=== PATIENT | female | born 1950 | race Hispanic/Latino ===

== ENCOUNTER 2018-06-05 12:24 | Inpatient (IN) | payer BC, MEDICARE ==
[~2018-06-05] VITALS: Ht 157.5 cm; Wt 66.7 kg
[2018-06-05] MEDS ORDERED: SODIUM CHLORIDE 0.9% 1000ML 1,000 ML IV STA (12:51)
[2018-06-05] MEDS ORDERED: MORPHINE SULFATE 2 MG/ML SYR 1ML IV STA (12:51)
[2018-06-05] MEDS ORDERED: ONDANSETRON HCL INJ 2MG/ML 2ML 2 MG/ML VIAL IV STA (12:51)
[2018-06-05] MEDS ORDERED: MORPHINE SULFATE INJ 4 MG/ML INJ 1ML IV ONE (13:00)
[2018-06-05 13:22] LABS: BASOPHILS # (AUTO) 0.1 (0.0-0.1); BASOPHILS % 0.5 % (0.0-1.0); EOSINOPHILS # (AUTO) 0.1 (0.0-0.4); EOSINOPHILS % 0.9 % (0.0-6.0); HEMATOCRIT 35.6 % (34.2-44.1); HEMOGLOBIN 11.8 g/dL (12.0-16.0); LYMPHOCYTES # (AUTO) 0.6 (1.0-3.2); LYMPHOCYTES % 6.1 % (18.0-39.1); MEAN CORPUSCULAR HEMOGLOBIN 29.6 pg (28-32); MEAN CORPUSCULAR HGB CONC 33.1 g/dL (31-35); MEAN CORPUSCULAR VOLUME 89.4 fL (81-99); MONOCYTES # (AUTO) 0.8 (0.2-0.8); MONOCYTES % 8.2 % (4.4-11.3); NEUTROPHILS % 81.2 % (38.7-80.0); PLATELET COUNT 146 x10e3/uL (140-360); RED BLOOD COUNT 3.98 x10e6/uL (3.6-5.1); RED CELL DISTRIBUTION WIDTH 14.2 % (11.7-14.4)
[2018-06-05 13:39] LABS: INR 0.99; PARTIAL THROMBOPLASTIN TIME 26.2 seconds (23.8-35.5); PROTHROMBIN TIME 13.6 seconds (11.9-14.5)
[2018-06-05 13:45] LABS: COLOR,URINE YELLOW (YELLOW)
[2018-06-05 13:46] LABS: CLARITY,URINE HAZY (CLEAR); KETONES,URINE NEGATIVE (NEGATIVE); LEUKOCYTE ESTERASE ,URINE TRACE (NEGATIVE); NITRITE,URINE NEGATIVE (NEGATIVE); PROTEIN,URINE DIPSTICK TRACE (NEGATIVE)
[2018-06-05 13:47] LABS: BILIRUBIN,URINE NEGATIVE (NEGATIVE); URINE UROBILINOGEN 0.2 mg/dL (0.2 - 1)
[2018-06-05 13:48] LABS: BACTERIA,URINE MANY /HPF; RBC,URINE 21-50 /HPF (0-5); WBC,URINE (MAN) >50 /HPF (0-5)
[2018-06-05 13:49] LABS: EPITHELIAL CELLS,URINE MODERATE /LPF
[2018-06-05 13:50] LABS: ALBUMIN 2.3 g/dL (3.5-5.0); ALBUMIN/GLOBULIN RATIO 0.4 (0.8-2.0); ANION GAP 16.3 mmol/L (8-16); CALCIUM 9.4 mg/dL (8.4-10.2); CREATININE, SERUM 2.53 mg/dL (0.57-1.11); POTASSIUM 4.3 mmol/L (3.5-5.1)
[2018-06-05] MEDS ORDERED: SODIUM CHLORIDE 0.9% 1000ML 1,000 ML IV SCH (14:00)
[2018-06-05] MEDS ORDERED: INSULIN REGULAR, HUMAN 100 UNIT/1 ML 3ML VIAL SQ ONE (14:00)
[2018-06-05] MEDS ORDERED: CEFTRIAXONE SOD 1 GM/NS 50 ML 50 ML IV ONE (14:15)
--- NOTE | 2018-06-05 14:18 | Diagnostic Imaging Report ---
EXAM: CT Abdomen and Pelvis WITHOUT contrast INDICATION: Abdominal pain COMPARISON: None. TECHNIQUE: Abdomen and pelvis were scanned utilizing a multidetector helical scanner from the lung base to the pubic symphysis without administration of IV contrast. Absence of intravenous contrast decreases sensitivity for detection of focal lesions and vascular pathology. Coronal and sagittal reformations were obtained. Renal stone protocol was performed. Dose modulation, iterative reconstruction, and/or weight based adjustment of the mA/kV was utilized to reduce the radiation dose to as low as reasonably achievable. IV CONTRAST: None. ORAL CONTRAST: None RADIATION DOSE: Total DLP: 435.11 mGy*cm Estimated effective dose: (DLP x 0.015 x size factor) mSv COMPLICATIONS: None FINDINGS: LINES and TUBES: None. LOWER THORAX: Lung bases clear. Heart size normal. HEPATOBILIARY: No focal hepatic lesions. No biliary ductal dilation. GALLBLADDER: No radio-opaque stones or sludge. No wall thickening. SPLEEN: No splenomegaly. PANCREAS: No focal masses or ductal dilatation. ADRENALS: No adrenal nodules KIDNEYS/URETERS: No hydronephrosis. The upper pole of the left kidney has a bulbous configuration which may obscure a mass on this noncontrast examination. An exophytic 9 mm mass projects from the lateral lower pole of left kidney with density suggesting cyst. No stones. GI TRACT: No abnormal distention, wall thickening, or evidence of bowel obstruction. Radiopaque material is seen in the stomach. Appendix is normal. PELVIC ORGANS/BLADDER: There is a mildly thickened wall of the urinary bladder. No discrete abnormal mass or fluid collection in the pelvis. The uterus is anteverted. A left adnexal calcification is noted. LYMPH NODES: No dominant lymph node mass is seen in the abdomen, retroperitoneum or pelvis. VESSELS: Abdominal aorta is atherosclerotic with no aneurysm. Unenhanced IVC unremarkable. PERITONEUM / RETROPERITONEUM: No pneumoperitoneum or ascites. BONES: No acute or suspicious bony lesions. SOFT TISSUES: Superficial surrounding soft tissue unremarkable. IMPRESSION: 1. No urinary tract calcification or hydronephrosis. Mild nonspecific perinephric stranding bilaterally. 2. Asymmetric enlargement of the upper pole of the left kidney. Full characterization is suboptimal due to lack of contrast. Underlying left renal mass is a concern. Recommend further evaluation with renal mass protocol CT. 3. Mild thickening of the wall of the urinary bladder which may be accentuated by lack of distention or may be related to cystitis. Staff: Joon Signed by: Dr. Quincy Dupree M.D. on 06/05/2018 2:15 PM
[2018-06-05 14:35] LABS: BLAST CELLS % MANUAL 1; EOSINOPHILS % (MANUAL) 1 % (0-7); LYMPHOCYTES % (MANUAL) 4 % (19-48); MONOCYTES % (MANUAL) 5 % (3.4-9.0); NEUTROPHILS % (MANUAL) 85 % (40-74)
[2018-06-05] MEDS ORDERED: DEXTROSE 50% SYRINGE 50 ML IV PRN (14:45)
[2018-06-05] MEDS: CEFTRIAXONE SOD 1 GM VIAL IV SCH (14:55)
--- OUTSIDE RECORDS SUMMARY | 2018-06-05 14:59 | XMS REPORT ---
[facility] Address Unknown Phone Unavailable Care Team Providers Care Last Chalker Name Role Phone Juani AVILA Unavailable Unavailable Problems This patient has no known problems. Allergies, Adverse Reactions, Alerts This patient has no known allergies or adverse reactions. Medications This patient has no known medications. Results Test Description Test Time Test Comments Text Results Atomic Results Result Comments CT ABDOMEN/PELVIS WO 2018-06-05 14:01:00 [place] [address] Patient Name: YAEL BRITO MR #: [id number] : 1950 Age/Sex: 68/F Req #: [id number] Adm Physician: Ordered by: JANE GRAY MANAGER FRONT OFFICE Report #: [id number] Location: ER Room/Bed: Procedure: [id number] CT/CT ABDOMEN/PELVIS WO Exam Date: 06/05/18 Exam Time: 1255 REPORT STATUS: Signed EXAM: CT Abdomen and Pelvis WITHOUT contrast INDIC ATION: Abdominal pain COMPARISON: None. TECHNIQUE: Abdomen and pelvis were scanned utilizing a multidetector helical scanner from the lung base to the pubic symphysis without administration of IV contrast. Absence of intravenous contrast decreases sensitivity for detection of focal lesions and vascular pathology. Coronal and sagittal reformations were obtained. Renal stone protocol was performed. Dose modulation, iterative reconstruction, and/or weight based adjustment of the mA/kV was utilized to reduce the radiation dose to as low as reasonably achievable. IV CONTRAST: None. ORAL CONTRAST: None RADIATION DOSE: Total DLP: 435.11 mGy*cm Estimated effective dose: (DLP x 0.015 x size factor) mSv COMPLICATIONS: None FINDINGS: LINES and TUBES: None. LOWER THORAX: Lung bases clear. Heart size normal. HEPATOBILIARY: No focal hepatic lesions. No biliary ductal dilation. GALLBLADDER: No radio- opaque stones or sludge. No wall thickening. SPLEEN: No splenomegaly. PANCREAS: No focal masses or ductal dilatation. ADRENALS: No adrenal nodules KIDNEYS/URETERS: No hydronephrosis. The upper pole of the left kidney has a bulbous configuration which may obscure a mass on this noncontrast examination. An exophytic 9 mm mass projects from the lateral low er pole of left kidney with density suggesting cyst. No stones. GI TRACT: No abnormal distention, wall thickening, or evidence of bowel obstruction. Radiopaque material is seen in the stomach. Appendix is normal. PELVIC ORGANS/BLADDER: There is a mildly thickened wall of the urinary bladder. No discrete abnormal mass or fluid collection in the pelvis. The uterus is anteverted. A left adnexal calcification is noted. LYMPH NODES: No dominant lymph node mass is seen in the abdomen, retroperitoneum or pelvis. VESSELS: Abdominal aorta is atherosclerotic with no aneurysm. Unenhanced IVC unremarkable. PERITONEUM / RETROPERITONEUM: No pneumoperitoneum or ascites. BONES: No acute or suspicious bony lesions. SOFT TISSUES: Superficial surrounding soft tissue unremarkable. IMPRESSION: 1. No urinary tract calcification or hydronephrosis. Mild nonspecific perinephric stranding bilaterally. 2. Asymmetric enlargement of the upper pole of the left kidney. Full characterization is suboptimal due to lack of contrast. Underlying left renal mass is a concern. Recommend further evaluation with renal mass protocol CT. 3. Mild thickening of the wall of the urinary bladder which may be accentuated by lack of distention or may be related to cystitis. Staff: Joon Signed by: Dr. Von Burroughs M.D. on 06/05/2018 2:15 PM Dictated By: VON BURROUGHS MD [id number] Transcribed By: HUMBERTO on 06/05/18 1414 COPY TO: JANE GRAY NP
[2018-06-05] MEDS ORDERED: INSULIN REGULAR, HUMAN 100 UNIT/1 ML 3ML VIAL IV NR (15:00)
[2018-06-05] MEDS: SODIUM CHLORIDE 0.9% 1000ML 1,000 ML IV SCH (17:00)
[2018-06-05] MEDS: INSULIN REGULAR, HUMAN 100 UNIT/1 ML 3ML VIAL SQ SCH ×2 (17:00→21:10)
[2018-06-05] MEDS: MORPHINE SULFATE INJ 4 MG/ML INJ 1ML IV PRN (19:24)
[2018-06-05] MEDS: ONDANSETRON HCL INJ 2MG/ML 2ML 2 MG/ML VIAL IV PRN (19:24)
--- NOTE | 2018-06-05 23:35 | NUR ---
DR. MONTERO AT BEDSIDE FOR PT EVAL AT THIS TIME
--- NOTE | 2018-06-05 23:50 | NUR ---
REPORT GIVEN TO DENY BRITO AND DENY CLARK. PT RESTING IN BED, NAD NOTED.
--- NOTE | 2018-06-06 02:49 | Diagnostic Imaging Report ---
EXAMINATION: CHEST SINGLE (PORTABLE) INDICATION: ^screening COMPARISON: None FINDINGS: AP view TUBES and LINES: None. LUNGS: Lungs are well inflated. Elevated right hemidiaphragm. Lungs are clear. There is no evidence of pneumonia or pulmonary edema. PLEURA: No pleural effusion or pneumothorax. HEART AND MEDIASTINUM: The cardiomediastinal silhouette is unremarkable. BONES AND SOFT TISSUES: No acute osseous lesion. Soft tissues are unremarkable. UPPER ABDOMEN: No free air under the diaphragm. IMPRESSION: No acute thoracic abnormality. Signed by: Dr. Marco Madrid M.D. on 06/06/2018 2:46 AM
[2018-06-06] MEDS: SODIUM CHLORIDE 0.9% 1000ML 1,000 ML IV SCH ×3 (04:27→17:05)
--- NOTE | 2018-06-06 05:47 | History and Physical ---
PRIMARY CARE DOCTOR: Sanya Rivera MD CHIEF COMPLAINT: Pain. HISTORY OF PRESENT ILLNESS: Ms. Hwang is a pleasant 68-year-old female with pain. The patient is having pain to her left side of the abdomen and slightly to her left flank. Onset 3-4 days. She was having some anorexia over the weekend. There are even reports of some hematuria. She was seen at primary care doctor's office today and then sent to the emergency room for rapid evaluation. In the emergency room, sodium found at 124, 2.5 creatinine, 31 bicarbonate, 490 platelets, 9.8 white count. Other labs otherwise were unremarkable. Urinalysis with greater than 50 white cells, moderate epithelial cells. Rbc's 21-50. Many bacteria. Abdominal CT done emergently with no urinary tract calcification. Nonspecific perinephric stranding bilaterally and could not rule out left renal mass. Hydronephrosis is noted on initial evaluation, but no hydronephrosis, was really congested. PAST MEDICAL HISTORY: Hypertension, diabetes, GERD, hyperlipidemia and vitamin D deficiency. MEDICATIONS: Medication list reviewed per the chart record. ALLERGIES: NO KNOWN DRUG ALLERGIES. SOCIAL HISTORY: No smoking. No drinking. No drugs. She is mainly homemaker. She is from [facility]. FAMILY HISTORY: Noncontributory to this. REVIEW OF SYSTEMS: GENERAL: No weight loss. HEENT: No mouth ulcers. OPHTHALMOLOGIC: No double vision. ENDOCRINE: No known thyroid dyscontrol/dystonia. DERMATOLOGIC: No known connective tissue disease. No rash. PULMONARY: No asthma. CARDIAC: No heart attacks. GI: No GI bleed. : No kidney stones known. NEUROLOGIC: No seizures. PSYCHIATRIC: No depression. PHYSICAL EXAMINATION: VITAL SIGNS: Currently afebrile, vital signs noted, reviewed per chart record. GENERAL: In no acute distress, alert, calm. HEENT: Normocephalic, atraumatic. NECK: Supple. Throat midline. LUNGS: Bilateral air entry, clear. CARDIOVASCULAR: S1 and S2. No murmurs, rubs, or gallops. ABDOMEN: Soft, obese, nontender. EXTREMITIES: No clubbing, no cyanosis, there is a 2+ edema. INTEGUMENT: No rash. No purpura. LABORATORY DATA: A 4.8 potassium, 124 sodium, 76 BUN, 2.5 creatinine. A 9.8 white count, 36 hematocrit, 146 platelets. INR 0.99. AST 114, alkaline phosphatase 190 and ALT 94. IMPRESSION AND PLAN: 1. Acute pyelonephritis. 2. Renal mass, likely baseline is 9 mm size. 3. Hematuria. 4. Anorexia. 5. Hypoglycemia. 6. Acute kidney failure. 7. Hyperglycemia. 8. Elevated LFTs. 9. History of hypertension. 10. Diabetes. 11. Gastroesophageal reflux disease. 12. Hyperlipidemia. Get ultrasound renal system . Endocrinology consult. Aggressive antibiotics. Await cultures. Give some IV fluid preload. The patient reported bouts of abdominal fullness and will check complement levels. Repeat LFTs in the morning. Thank you very much, Dr. Rivera for allowing me a chance to participate in care of Ms. Hwang. Do not hesitate to contact me if I could help you in any way. MD RITO Ortega/MARLON /[id number]
--- NOTE | 2018-06-06 07:10 | NUR ---
Walking rounds completed with Sohan SARGENT RN. Pt is in no acute distress at this time.
--- NOTE | 2018-06-06 07:11 | NUR ---
report given in full to mic rosas
--- NOTE | 2018-06-06 07:17 | NUR ---
consult called to dr messer
[2018-06-06 08:38] LABS: BASOPHILS # (AUTO) 0.1 (0.0-0.1); BASOPHILS % 0.4 % (0.0-1.0); EOSINOPHILS # (AUTO) 0.1 (0.0-0.4); EOSINOPHILS % 0.8 % (0.0-6.0); HEMATOCRIT 34.7 % (34.2-44.1); HEMOGLOBIN 11.4 g/dL (12.0-16.0); LYMPHOCYTES # (AUTO) 0.6 (1.0-3.2); LYMPHOCYTES % 4.7 % (18.0-39.1); MEAN CORPUSCULAR HEMOGLOBIN 29.8 pg (28-32); MEAN CORPUSCULAR HGB CONC 32.9 g/dL (31-35); MEAN CORPUSCULAR VOLUME 90.8 fL (81-99); MONOCYTES # (AUTO) 0.9 (0.2-0.8); MONOCYTES % 6.7 % (4.4-11.3); NEUTROPHILS # (AUTO) 11.4 (2.1-6.9); NEUTROPHILS % 85.1 % (38.7-80.0); PLATELET COUNT 163 x10e3/uL (140-360); RED BLOOD COUNT 3.82 x10e6/uL (3.6-5.1); RED CELL DISTRIBUTION WIDTH 14.6 % (11.7-14.4)
[2018-06-06 08:57] LABS: ALBUMIN 2.2 g/dL (3.5-5.0); ALBUMIN/GLOBULIN RATIO 0.4 (0.8-2.0); ANION GAP 14.5 mmol/L (8-16); CALCIUM 9.2 mg/dL (8.4-10.2); CREATININE, SERUM 1.79 mg/dL (0.57-1.11); POTASSIUM 4.5 mmol/L (3.5-5.1)
[2018-06-06 09:21] LABS: MAGNESIUM 2.1 MG/DL (1.3-2.1); PHOSPHORUS 2.7 MG/DL (2.3-4.7)
--- NOTE | 2018-06-06 09:59 | Diagnostic Imaging Report ---
EXAM: US ABDOMEN COMPLETE DATE: 06/06/2018 8:00 AM INDICATION: Acute renal/liver failure, renal mass COMPARISON: CT abdomen/pelvis, 06/05/2018 FINDINGS: Grayscale and color flow Doppler ultrasound of the abdomen was performed. Liver: 12.6 cm span. Mildly hyperechoic parenchyma. No intrahepatic mass or bile duct dilatation. Main portal vein 0.7 cm, nondilated, normal hepatopetal flow. Spleen: 9.2 cm span, no splenomegaly. Biliary: No cholelithiasis. Sludge is seen within the gallbladder lumen. There is no gallbladder wall thickening. Sonographic Downey sign negative. Common bile duct 0.5 cm, normal. Pancreas: Visualized portions the pancreas show no discrete mass or duct dilatation. Right kidney: 11.6 x 4.5 x 4.6 cm. Normal cortical echogenicity. No hydronephrosis or contour deforming mass. Left kidney: 10.9 x 5.8 x 5.4 cm. Normal cortical echogenicity. The upper pole appears slightly more prominent than the lower pole, as on the previous CT. An indeterminate localized hyperechoic area is seen in the posterior cortex of the upper pole, measuring 1.9 x 1.8 cm. No other discrete renal mass identified. There is a lower pole left renal cyst measuring 1.5 x 1.3 x 1.1 cm. Vessels: Aorta and IVC are largely obscured by overlying bowel. Ascites: None IMPRESSION: 1. The upper pole of left kidney appears wider than the lower pole, although a discrete contour deforming mass is not identified. This may be due to splenic impression rather than mass. A nonspecific hyperechoic area is seen in the cortex of the upper pole. If the patient is unable to tolerate IV contrast for renal mass CT, a noncontrast renal MRI may provide additional characterization. 2. No cholelithiasis, evidence for cholecystitis, or bile duct dilatation. 3. Hepatic steatosis. Signed by: Dr. Quincy Dupree M.D. on 06/06/2018 9:56 AM
[2018-06-06] MEDS: INSULIN REGULAR, HUMAN 100 UNIT/1 ML 3ML VIAL SQ SCH ×4 (10:45→21:00)
[2018-06-06] MEDS: ONDANSETRON HCL INJ 2MG/ML 2ML 2 MG/ML VIAL IV PRN (11:18)
[2018-06-06] MEDS: MORPHINE SULFATE INJ 4 MG/ML INJ 1ML IV PRN (11:20)
[2018-06-06] MEDS ORDERED: ACETAMINOPHEN 325 MG TAB PO ONE (13:00)
--- NOTE | 2018-06-06 14:55 | Progress Note ---
DATE: 06/06/2018 Internal Medicine Progress Note SUBJECTIVE: Ms. Hwang was seen and examined at bedside. She continues to have slow progress. She has a lot of abdominal pain and left flank pain. The patient ate very minimal amount today. The patient's hemodynamics are more stable except for heart rates being in the 110s. The patient with creatinine that is already improving. The patient is awake, is spontaneously breathing. REVIEW OF SYSTEMS: No bleeding, no chest pain. OBJECTIVE: VITAL SIGNS: Currently afebrile. Vital signs noted and reviewed per the chart record. GENERAL: In bed, slightly feeling weak, but talking. HEENT: Normocephalic, atraumatic. NECK: Supple. Throat midline. LUNGS: Bilateral air entry, limited, but clear. CARDIOVASCULAR: S1, S2. No murmurs, rubs, or gallops. ABDOMEN: Soft, nontender. EXTREMITIES: No clubbing, no cyanosis. There is no edema. INTEGUMENT: No rash. No purpura. LABS: 4.5 potassium, 16 BUN, 1.8 creatinine. IMPRESSION AND PLAN: 1. Pyelonephritis. 2. Abdominal/flank pain, left side. 3. Left renal abnormality on imaging, nonspecific. 4. Weakness and anorexia. 5. Uncontrolled diabetes. 6. Acute liver failure, mild; transaminitis, hopefully better. At this time, continue current therapy. The patient to continue antibiotics. We will follow up the ultrasound results and focus on kidneys if it is acute or chronic as well as look in liver for any mass lesions. We will look at the left kidney if there is any mass lesion noted. Continue supportive IV fluid and repeat blood work tomorrow. We will follow along closely. MD RITO Ortega/MARLON /[id number]
[2018-06-06] MEDS: CEFTRIAXONE SOD 1 GM VIAL IV SCH (16:58)
[2018-06-06] MEDS: HEPARIN SOD (PORCINE) 5,000 UNIT/ML VIAL SC SCH ×2 (17:00→21:00)
--- NOTE | 2018-06-06 17:41 | NUR ---
report received from Bina, patient to arrive Alert and oriented via stretcher.
--- NOTE | 2018-06-06 18:00 | NUR ---
patient arrived via stretched alert and oriented and in no distress. call harris within reach, bed in lowest position and daughter at bedside.
[2018-06-06 18:19] VITALS: BP 120/57
--- NOTE | 2018-06-06 18:40 | NUR ---
handoff report given to night nurse nurse, patient aware of change. call hraris within reach, bed in lowest position and daughter remains at bedside.
[2018-06-06 19:15] VITALS: BP 120/57
--- NOTE | 2018-06-06 19:15 | NUR ---
patient received awake, alert, lying quietly in bed. no c/o pain noted at this time. ivf continue to infuse without difficulty. admit assessment/history complete. family noted at the bedside. patient/family instructed to call for assistance when needed.
[2018-06-06 19:30] VITALS: BP 127/62
--- NOTE | 2018-06-06 19:30 | NUR ---
Blood pressure 181/88 hr 62. patient medicated with clonidine 0.1 mg po at 1848 for elevated bp. will continue to monitor. Addendum: 06/06/18 at 2224 by Adeola Gomez RN error--wrong patient.
[2018-06-06 20:00] VITALS: BP 127/62
[2018-06-06] MEDS ORDERED: CELEBREX200 MG PO (21:52)
[2018-06-06] MEDS ORDERED: PANTOPRAZOLE SO40 MG PO (21:53)
[2018-06-06] MEDS ORDERED: synjardy PO (21:57)
[2018-06-06] MEDS ORDERED: MAGNESIUM OXID400 MG PO (22:06)
[2018-06-06] MEDS ORDERED: VITAMIN D400 UNIT PO (22:06)
[2018-06-06] MEDS ORDERED: CRESTOR10 MG PO (22:06)
[2018-06-06] MEDS ORDERED: ACTOS30 MG PO (22:06)
[2018-06-06] MEDS ORDERED: GABAPENTIN300 MG PO (22:06)
[2018-06-06] MEDS ORDERED: ALENDRONATE SOD70 MG PO (22:09)
[2018-06-06] MEDS ORDERED: BENICAR20 MG PO (22:09)
[2018-06-07] VITALS: BP 132/80
[2018-06-07] MEDS: ONDANSETRON HCL INJ 2MG/ML 2ML 2 MG/ML VIAL IV PRN ×2 (00:45→13:16)
[2018-06-07] MEDS: MORPHINE SULFATE INJ 4 MG/ML INJ 1ML IV PRN ×2 (00:45→13:16)
--- NOTE | 2018-06-07 00:45 | NUR ---
patient medicated with morphine 4 mg and zofran 4 mg ivp for c/o left lower abd/lower back pain 09/05 at this time. bed alarm remains on and call harris within reach. patient instructed to call for assistance when needed.
--- NOTE | 2018-06-07 03:38 | Consultation ---
DATE OF CONSULTATION: 06/06/2018 Nephrology Consult Note REASON FOR CONSULTATION: Hyponatremia and left renal mass seen on imaging. HISTORY OF PRESENT ILLNESS: This is a 68-year-old female with past medical history of hypertension, diabetes, GERD, hyperlipidemia, and vitamin D deficiency, who came into the ED with complaints of left-sided abdominal flank pain ongoing for the last 3 to 4 days. The patient has also been having some decreased oral intake over the weekend. She was seen by her PCP and was told to come to the ER for the evaluation. The patient reports having some hematuria as well. On arrival here, the patient was found to have a sodium level of 124, creatinine is 2.5. The patient denies any diuretic using at home. Denies any renal stones in the past. Has had urinary tract infections before. Denies any family history of renal disease or failure. Denies any NSAID uses or any [id number] medications. CTA imaging was performed shows evidence of a renal mass in the left renal lower pole of the kidney. We will likely need further evaluation. REVIEW OF SYSTEMS: 1. Pertinent positives: Hematuria, flank pain. Decreased oral intake. 2. Pertinent negative: Denies any chest pain, palpitation, nausea, vomiting, diarrhea, dysuria, hematuria, frequency, urgency, lightheadedness, dizziness, abdominal pain, headaches, shortness of breath, cough, congestion, fever, or any other complaints. The rest of the 14-point review of systems are reviewed with the patient and are negative. ALLERGIES: NO KNOWN DRUG ALLERGIES. HOME MEDICATIONS: Currently, not available. Please see med reconciliation form once available in the chart. PAST MEDICAL HISTORY: Hypertension, diabetes, GERD, hyperlipidemia, and vitamin D deficiency. FAMILY HISTORY: Hypertension, diabetes. PAST SURGICAL HISTORY: Reports none. SOCIAL HISTORY: No smoking. No drugs. No alcohol. She is . PHYSICAL EXAMINATION: VITAL SIGNS: Temperature 96.6, pulse 87, respiratory rate is 20, blood pressure is 127/62, pulse ox 97% on room air. GENERAL: Not in acute distress. Alert and oriented x3. Cooperative on examination HEENT: Head is normocephalic, atraumatic. Eyes, Pupils are equal, round, and reactive to light bilaterally. Extraocular movements are intact bilaterally. NECK: Supple with good range of motion. Throat, no evidence of erythema or exudates in the posterior pharynx. Has poor dentition. PULMONARY: Clear to auscultation bilaterally. No wheezing, no rales, or rhonchi. No crackles appreciated. CARDIOVASCULAR: Positive S1, S2. No murmurs, rubs, or gallops appreciated. ABDOMEN: Soft, nondistended, and nontender to palpation. Bowel sounds present. MUSCULOSKELETAL: Strength is 5/5 throughout. No evidence of any muscle deficits on examination. No weakness appreciated. NEUROLOGICAL: Cranial nerves II through XII grossly intact. No evidence of any neurological deficit on exam. SKIN: Intact. Warm to touch. Good cap refill. PSYCHIATRIC: Normal affect and mood. EXTREMITIES: No edema. Good range of motion throughout. LAB FINDINGS: Show white count 13.3, hemoglobin 9.1, hematocrit 34.7, and platelets of 163. Chemistry: Sodium is 132, on admission 124; potassium is 4.5; chloride is 101; bicarbonate is 21; anion gap of 14; BUN is 16; creatinine is 1.79; glucose 174; calcium is 9.2; phosphorus is 2.7; magnesium is 2.1. LFTs were normal. Albumin was 2.2. Urinalysis concerning for UTI. C3, C4, and complement CH50 has been ordered. MICROBIOLOGY: Urine culture positive for gram-negative rods. IMAGING STUDIES: CT of abdomen and pelvis shows no urinary tract calculi or hydronephrosis. Mild nonspecific perinephric stranding bilaterally. There is also concern for a left renal mass, will need renal mass protocol CT to further evaluate. There is also mild thickening of the gallbladder, concerning for underlying cystitis. Chest x-ray, negative. Abdominal ultrasound shows an upper pole does not appear to be wide than the lower pole, although discrete contour, deformity, or mass is not identified. This may be due to splenic compression rather than a mass. The patient is unable to tolerate IV contrast for renal mass CT and noncontrast renal MRI may provide additional characterization. IMPRESSION: 1. Acute kidney injury secondary to prerenal azotemia and dehydration. 2. Hematuria. 3. Concerns for left renal mass. 4. Hyponatremia. 5. Pyelonephritis, urinary tract infection. PLAN: At this time, her renal function actually improved with IV fluid hydration. We will continue with IV fluids for now. We are going to monitor sodium level, which increased appropriately to 132 as of this morning. We are going to order stat sodium level now to evaluate further. We will get a CT of renal mass protocol tomorrow with IV contrast if the renal function has improved, which I suspected well. I will continue with IV antibiotics as per primary team. The urine culture showed gram-negative rods. I will go ahead and get a urine protein to creatinine ratio, urine sodium, urine chloride, microalbumin to creatinine as well. In relation to her hematuria, we will need to evaluate this further with a CT scan and also Urology has been consulted for further management care. C3, C4, CH50 has been ordered, which is appropriate. We will continue to monitor. We will also get a repeat UA with microscopy in the event if she has changed. This could also be secondary to underlying pyelonephritis leading to the hematuria. MD ANNE Cadet/MARLON /[id number]
[2018-06-07 04:00] VITALS: BP 130/62
[2018-06-07] MEDS: SODIUM CHLORIDE 0.9% 1000ML 1,000 ML IV SCH ×3 (04:30→15:20)
--- NOTE | 2018-06-07 04:40 | NUR ---
urine collected per orders and sent to lab.
[2018-06-07 05:31] LABS: BILIRUBIN,URINE NEGATIVE (NEGATIVE); CLARITY,URINE CLOUDY (CLEAR); COLOR,URINE YELLOW (YELLOW); KETONES,URINE NEGATIVE (NEGATIVE); LEUKOCYTE ESTERASE ,URINE 1+ (NEGATIVE); NITRITE,URINE NEGATIVE (NEGATIVE); PROTEIN,URINE DIPSTICK 1+ (NEGATIVE); URINE UROBILINOGEN 0.2 mg/dL (0.2 - 1)
[2018-06-07 06:08] LABS: BASOPHILS % 0.2 % (0.0-1.0); EOSINOPHILS # (AUTO) 0.3 (0.0-0.4); EOSINOPHILS % 1.9 % (0.0-6.0); HEMATOCRIT 30.5 % (34.2-44.1); HEMOGLOBIN 9.8 g/dL (12.0-16.0); LYMPHOCYTES # (AUTO) 0.9 (1.0-3.2); LYMPHOCYTES % 5.4 % (18.0-39.1); MEAN CORPUSCULAR HEMOGLOBIN 29.2 pg (28-32); MEAN CORPUSCULAR HGB CONC 32.1 g/dL (31-35); MEAN CORPUSCULAR VOLUME 90.8 fL (81-99); MONOCYTES # (AUTO) 0.9 (0.2-0.8); MONOCYTES % 5.2 % (4.4-11.3); NEUTROPHILS # (AUTO) 13.8 (2.1-6.9); NEUTROPHILS % 85.3 % (38.7-80.0); PLATELET COUNT 142 x10e3/uL (140-360); RED BLOOD COUNT 3.36 x10e6/uL (3.6-5.1); RED CELL DISTRIBUTION WIDTH 15.3 % (11.7-14.4)
[2018-06-07 06:29] LABS: BACTERIA,URINE RARE /HPF; EPITHELIAL CELLS,URINE FEW /LPF
[2018-06-07 06:30] LABS: RENAL EPITHELIAL CELLS,URINE RARE; TRANSITIONAL EPI CELLS,URINE FEW
[2018-06-07 06:38] LABS: ALBUMIN 1.7 g/dL (3.5-5.0); ALBUMIN/GLOBULIN RATIO 0.4 (0.8-2.0); ANION GAP 11.1 mmol/L (8-16); CALCIUM 8.5 mg/dL (8.4-10.2); CREATININE, SERUM 1.6 mg/dL (0.57-1.11); POTASSIUM 5.1 mmol/L (3.5-5.1)
[2018-06-07] MEDS: INSULIN REGULAR, HUMAN 100 UNIT/1 ML 3ML VIAL SQ SCH ×4 (07:30→21:00)
[2018-06-07 07:38] VITALS: BP 114/53
[2018-06-07 08:00] VITALS: BP 114/53
--- NOTE | 2018-06-07 08:09 | Consultation ---
DATE OF CONSULTATION: 06/07/2018 REASON FOR CONSULTATION: Left renal mass. HISTORY OF PRESENT ILLNESS: Valerie Hwang is a 68-year-old woman, who has never seen a urologist. The patient was noted to have microscopic hematuria at her primary care physician's office. She also has had some left-sided flank pain, it is believed to be left renal colic. She was referred to the emergency room, was subsequently evaluated and admitted. The patient denies previous history of recurrent urinary tract infections. Denies any gross hematuria. She denies any urinary incontinence. She denies any urological surgery. PAST MEDICAL AND SURGICAL HISTORY: 1. Status post tubal ligation. 2. Hypertension. 3. Diabetes mellitus. 4. Gastroesophageal reflux disease. 5. Hyperlipidemia. 6. Vitamin D deficiency. SOCIAL HISTORY: The patient denies smoking or ethanol drug use. She is retired. She used to clean houses. She has supportive at the bedside. FAMILY HISTORY: Noncontributory to the active urological problems. CURRENT MEDICATIONS: Please refer to the MAR. REVIEW OF SYSTEMS: Discussed as above in the history of present illness and past medical history, otherwise negative for all systems. ALLERGIES: NONE KNOWN. PHYSICAL EXAMINATION: GENERAL: Very pleasant 68-year-old woman lying in bed, in no apparent distress. She is currently afebrile. VITAL SIGNS: Currently stable. Her temperature maximum is 100 degrees Fahrenheit. ABDOMEN: Soft and nondistended, slightly tender in the left flank with mild left-sided costovertebral angle tenderness. Kidneys not palpable without hepatosplenomegaly. For the remaining physical examination systems, please refer to the admission history and physical as well as the Nephrology consultation on the chart. LABORATORY STUDIES: Urine culture reveals gram-negative bacteria and sensitivities are pending. White blood cell count is elevated at 6210, hemoglobin is 9.8, and platelets are normal at 142,000. The patient's sodium is low at 129. The patient's creatinine is elevated at 1.79. Urinalysis is significant for microhematuria and pyuria with moderate epithelial cells consistent with a [id number] urinary specimen. Followup urine specimen is pending. Microscopy, but hopefully it was a catheterized specimen. CT scan of the abdomen and pelvis revealed a small left renal cysts that also revealed an upper pole bulbous configuration, which may obscure mass. Ultrasonography reveals a lower pole left renal cyst, it is measuring 1.5 cm and a localized hyperechoic area measuring 1.9 cm in the upper pole. ASSESSMENT: 1. Left renal mass, which potentially could be infectious in nature. 2. Microhematuria. 3. Left renal colic. 4. Urinary tract infection. 5. Left pyelonephritis. 6. Leukocytosis. 7. Anemia. 8. Hyponatremia. 9. Chronic renal insufficiency. 10. Left renal cyst. PLAN: 1. Intravenous antibiotics. 2. Await urine culture and adjust antibiotics accordingly. 3. Defer the hematological as well as electrolyte abnormalities to the admitting physician as well to the renal statistical consultant on the case. 4. Follow up imaging will be performed on the patient in her normal state of health and her infection has been treated. 5. At some point in time, cystoscopy and retrograde pyelogram will be indicated. However, we will wait until the patient is medically better prior to pursuing such a procedure. Ideally, that procedure can be done electively as an outpatient when the patient feels well. Thank you very much for involving us in the care of your patient. We will be happy to follow her along with you as well as an outpatient. Felix Pereira MD [place]/[facility] /[id number] cc: MD Sanya Francois MD
[2018-06-07 08:41] LABS: ANISOCYTOSIS SLIGHT; EOSINOPHILS % (MANUAL) 5 % (0-7); HYPOCHROMASIA SLIGHT; LYMPHOCYTES % (MANUAL) 7 % (19-48); METAMYELOCYTES % (MANUAL) 1 % (0-0); MONOCYTES % (MANUAL) 2 % (3.4-9.0); NEUTROPHILS % (MANUAL) 85 % (40-74); PLATELET ESTIMATE ADEQUATE; PLATELET MORPHOLOGY COMMENT NORMAL; RBC MORPHOLOGY COMMENT NORMAL
[2018-06-07] MEDS: HEPARIN SOD (PORCINE) 5,000 UNIT/ML VIAL SC SCH ×2 (09:32→21:29)
--- NOTE | 2018-06-07 09:34 | NUR ---
PATIENT ASSISTED TO THE RESTROOM TO VOID; HER URINE IS CLEAR YELLOW WITHOUT BLOOD, SHE AMBULATED IN THE [facility] WITH PRIMARY NURSE AT HER SIDE. SHE'S NOW SITTING UP IN THE RECLINER WITH CALL LIGHT WITHIN EASY REACH.
[2018-06-07 10:03] LABS: CREATININE,URINE RANDOM 55.31 mg/dL (47-110); SODIUM,URINE 27 mmol/L; TOTAL PROTEIN, URINE 31.9 mg/dL (1-14)
[2018-06-07 10:05] LABS: PROTEIN/CREATININE RATIO,URINE 0.58
[2018-06-07 11:36] VITALS: BP 142/63
--- NOTE | 2018-06-07 16:10 | NUR ---
IV OBSERVED INFILTRATED, IV REMOVED WITH TIP INTACT. IV #20 GAUGE INSERTED TO THE LEFT FOREARM, PATIENT TOLERATED PROCEDURE WELL. IV ANTIBIOTIC WITH FLUID INFUSING ORDERED.
[2018-06-07] MEDS: CEFTRIAXONE SOD 1 GM/NS 50 ML 50 ML IV SCH (16:12)
[2018-06-07] MEDS: DOCUSATE SODIUM 100 MG CAP PO SCH (17:08)
[2018-06-07] MEDS: MAGNESIUM/ALUMINUM/SIMETHICONE 30 ML UDC PO PRN (17:08)
[2018-06-07 20:00] VITALS: BP 129/62
--- NOTE | 2018-06-07 23:33 | Progress Note ---
DATE: 06/07/2018 Internal Medicine Progress Note. SUBJECTIVE: The patient was seen and examined at bedside. The patient with normal saline 125 mL/h. There is left-sided flank pain, but slightly less today. The patient is able to walk today, weakly and difficulty due to the pain. The patient is tolerating the antibiotics for now. White count is increasing. REVIEW OF SYSTEMS: No bleeding, no double vision. OBJECTIVE: VITAL SIGNS: Afebrile, vital signs noted per the chart record. GENERAL: In no acute distress, looks with better color today. Calm in bed. HEENT: Normocephalic, atraumatic. NECK: Supple. Throat midline. LUNGS: Bilateral air entry, clear. CARDIOVASCULAR: S1, S2. No murmurs, rubs, or gallops. ABDOMEN: Soft, nontender. EXTREMITIES: No clubbing, no cyanosis. There is no edema. INTEGUMENT: No rash or purpura. LABS: 16 white count, 31 hematocrit, 142 platelets. 5.1 potassium, 51 BUN, 1.6 creatinine. IMPRESSION AND PLAN: 1. Acute kidney failure. 2. Klebsiella pneumoniae urinary tract infection. 3. Leukocytosis, persistent. 4. Hyperechoic renal lesion, mass versus infection versus other etiology. 5. Anemia. 6. Elevated LFTs, acute liver failure. 7. Severe protein-calorie malnutrition. 8. Hypertension, diabetes, gastroesophageal reflux disease, hyperlipidemia, vitamin D deficiency. At this time I want to continue following white count to ensure improved. Continue antibiotics for this severe infection and severe sepsis. Continue IV fluids. Consideration to repeat imaging of the kidneys once the infection is better or earlier if required per specialist. The patient will continue serial follow up on her symptoms. We hope for quick improvement. Colace and other treatment for constipation. Recheck labs in the morning. MD RITO Ortega/MODL /[id number]
[2018-06-08] VITALS (8 sets, daily range): BP systolic 132–177; BP diastolic 61–75
[2018-06-08] MEDS: SODIUM CHLORIDE 0.9% 1000ML 1,000 ML IV SCH ×4 (00:48→23:58)
[2018-06-08] MEDS: MORPHINE SULFATE INJ 4 MG/ML INJ 1ML IV PRN (00:51)
--- NOTE | 2018-06-08 01:29 | Progress Note ---
DATE: 06/07/2018 Nephrology Progress Note SUBJECTIVE: The patient is doing well today with no complaints. Creatinine improved. Creatinine 1.6. White count is elevated at 16, concerning for underlying pyelonephritis as well. OBJECTIVE: VITAL SIGNS: Temperature is 99.1, pulse 91, respiratory rate 20, blood pressure 129/62, pulse ox 96% on room air. GENERAL: No acute distress, alert and oriented x3, cooperative on examination. HEENT: Head is normocephalic and atraumatic. Eyes, pupils are equal, round, and reactive to light bilaterally. Extraocular movements are intact bilaterally. NECK: Supple. Good range of motion. Throat, no evidence of erythema or exudates in the posterior pharynx. Has poor dentition. PULMONARY: Clear to auscultation bilaterally. No wheezing, no rales, no rhonchi, no crackles appreciated. CARDIOVASCULAR: Positive S1, S2. No murmurs, rubs, or gallops appreciated. ABDOMEN: Soft, nontender, nondistended on palpation. Bowel sounds present. MUSCULOSKELETAL: Strength is 5/5 throughout. No evidence of any muscle deficits on examination. No weakness appreciated. NEUROLOGICAL: Cranial nerves II through XII grossly intact. No evidence of any neurological deficits on exam. SKIN: Intact. Warm to touch. Good cap refill. PSYCHIATRIC: Normal affect and mood. EXTREMITIES: No edema. Good range of motion throughout. LAB FINDINGS: Show white count 16.3, hemoglobin 9.8, hematocrit 31, and platelets of 142. Coagulation; PT 13, INR 0.99, PTT 26. Chemistry; sodium 133, potassium is 5.1, chloride is 106, bicarb 29, anion gap of 11, BUN 61, creatinine 1.6, glucose is 133, AST 79, ALT 63, alkaline phosphatase 177, total protein 5.8. Microbiology, urine culture positive for Klebsiella pneumoniae. IMPRESSION: 1. Acute kidney injury secondary to prerenal azotemia and dehydration. 2. Hematuria. 3. left renal mass. 4. Hyponatremia. 5. Pyelonephritis secondary to urinary tract infection. PLAN: At this time, her creatinine did improve to 1.6. Continue with IV fluids. If the creatinine improves tomorrow, we will get a CT renal mass protocol with IV contrast later tonight. I think the MRI with renal mass protocol is warranted prior to being discharged. Urine cultures are noted. She is on IV antibiotics. She has very minimal proteinuria on UPC. Microalbumin to creatinine is pending. Otherwise, we will continue following, get a.m. labs. MD ANNE Cadet/MARLON /[id number]
[2018-06-08 05:52] LABS: BASOPHILS % 0.2 % (0.0-1.0); EOSINOPHILS # (AUTO) 0.2 (0.0-0.4); EOSINOPHILS % 1.4 % (0.0-6.0); HEMATOCRIT 29.5 % (34.2-44.1); HEMOGLOBIN 9.7 g/dL (12.0-16.0); LYMPHOCYTES % 6.2 % (18.0-39.1); MEAN CORPUSCULAR HEMOGLOBIN 29.7 pg (28-32); MEAN CORPUSCULAR HGB CONC 32.9 g/dL (31-35); MEAN CORPUSCULAR VOLUME 90.2 fL (81-99); MONOCYTES # (AUTO) 0.9 (0.2-0.8); MONOCYTES % 5.4 % (4.4-11.3); NEUTROPHILS % 83.6 % (38.7-80.0); PLATELET COUNT 147 x10e3/uL (140-360); RED BLOOD COUNT 3.27 x10e6/uL (3.6-5.1); RED CELL DISTRIBUTION WIDTH 15.6 % (11.7-14.4)
[2018-06-08 06:16] LABS: ANION GAP 11.2 mmol/L (8-16); CALCIUM 8.2 mg/dL (8.4-10.2); CREATININE, SERUM 1.12 mg/dL (0.57-1.11); MAGNESIUM 1.9 MG/DL (1.3-2.1); POTASSIUM 4.2 mmol/L (3.5-5.1)
--- NOTE | 2018-06-08 07:23 | NUR ---
Patient endorsed to next shift for continuity of care.
[2018-06-08] MEDS: INSULIN REGULAR, HUMAN 100 UNIT/1 ML 3ML VIAL SQ SCH ×4 (07:30→21:37)
--- NOTE | 2018-06-08 08:50 | NUR ---
Pt received resting in bed. Alert and oriented x4 but mostly Wolof speaking. Oriented to staff and surroundings. All meds given as ordered. Emotional support given. Call harris within reach. Will monitor
[2018-06-08] MEDS: HEPARIN SOD (PORCINE) 5,000 UNIT/ML VIAL SC SCH ×2 (08:51→21:37)
[2018-06-08] MEDS: DOCUSATE SODIUM 100 MG CAP PO SCH ×2 (08:51→18:13)
[2018-06-08 12:35] LABS: ANISOCYTOSIS SLIGHT; EOSINOPHILS % (MANUAL) 1 % (0-7); HYPOCHROMASIA SLIGHT; LYMPHOCYTES % (MANUAL) 7 % (19-48); METAMYELOCYTES % (MANUAL) 1 % (0-0); MONOCYTES % (MANUAL) 5 % (3.4-9.0); MYELOCYTES % (MANUAL) 2 % (0-0); NEUTROPHILS % (MANUAL) 83 % (40-74); PROMYELOCYTES % (MANUAL) 1 % (0-0); RBC MORPHOLOGY COMMENT NORMAL
[2018-06-08 12:36] LABS: PLATELET ESTIMATE SLIGHTLY DECREASED
[2018-06-08] MEDS ORDERED: CEFUROXIME250 MG PO (13:45)
[2018-06-08] MEDS ORDERED: IOPAMIDOL 370 MG/ML 200 ML INFUS..BTL INJ ONE (14:22)
[2018-06-08] MEDS ORDERED: SODIUM CHLORIDE 0.9% 50ML 50 ML ONE (14:22)
--- NOTE | 2018-06-08 14:42 | Diagnostic Imaging Report ---
EXAM: CT Abdomen and Pelvis WITHOUT and WITH contrast INDICATION: Renal mass COMPARISON: CT abdomen/pelvis, noncontrast, 06/05/2018; abdominal ultrasound, 06/06/2018 TECHNIQUE: Abdomen was scanned utilizing a multidetector helical scanner from the lung base to the iliac crest before and after administration of IV contrast. Coronal and sagittal reformations were obtained. Renal mass protocol was performed. Scan was performed precontrast, early and late arterial phase, and 4 minute delayed phase.. Dose modulation, iterative reconstruction, and/or weight based adjustment of the mA/kV was utilized to reduce the radiation dose to as low as reasonably achievable. IV CONTRAST: 100 mL of Isovue-370 ORAL CONTRAST: 900 cc water RADIATION DOSE: Total DLP: 1705.67 mGy*cm Estimated effective dose: (DLP x 0.015 x size factor) mSv COMPLICATIONS: None FINDINGS: LINES and TUBES: None. LOWER THORAX: Lung bases clear with minimal atelectasis in the lower lobes. Heart size normal. HEPATOBILIARY: No focal hepatic lesions. No biliary ductal dilation. GALLBLADDER: No radio-opaque stones or sludge. No wall thickening. The gallbladder is distended measuring 9 cm in length. SPLEEN: No splenomegaly. PANCREAS: No focal masses or ductal dilatation. ADRENALS: No adrenal nodules KIDNEYS/URETERS: Kidneys enhance symmetrically. No hydronephrosis. The upper and mid portions of the left kidney are enlarged with multiple areas of hypoperfusion which extend through the cortex. Largest low density area measures 2.4 cm and extends to the renal capsule with thickening of Gerota's fascia. Within the largest area of low density there is minimal enhancement, measuring 15 HU precontrast, 19 HU early arterial, 27 HU late arterial, and 18 HU delayed. No stones. GI TRACT: No abnormal distention, wall thickening, or evidence of bowel obstruction. Appendix is normal. PELVIC ORGANS/BLADDER: There is a mildly thickened wall of the urinary bladder. No discrete abnormal mass or fluid collection in the pelvis. The uterus is anteverted. A left adnexal calcification is noted LYMPH NODES: No dominant lymph node mass in the abdomen, retroperitoneum or pelvis. VESSELS: Abdominal aorta is atherosclerotic with scattered calcified plaques. No aneurysm. IVC unremarkable. Portal system is not well opacified due to bolus timing. PERITONEUM / RETROPERITONEUM: No pneumoperitoneum or ascites. BONES: No acute or suspicious bony lesions. SOFT TISSUES: Superficial surrounding soft tissue unremarkable. IMPRESSION: 1. Upper pole of the left kidney is enlarged and edematous. There are multiple low density areas of hypoperfusion within the upper pole and lateral midportion of the left kidney suggesting pyelonephritis or renal phlegmon with lobar nephronia. No discrete drainable abscess collection is seen. The process does extend slightly beyond the renal capsule with thickening of Gerota's fascia. Recommend repeat CT after treatment to assure full resolution and exclude possibility of underlying mass. 2. No hydronephrosis or renal calculus. 3. Mild wall thickening of the urinary bladder suggesting possible cystitis. Signed by: Dr. Quincy Dupree M.D. on 06/08/2018 2:39 PM
--- NOTE | 2018-06-08 15:02 | Progress Note ---
DATE: 06/08/2018 Nephrology Progress Note SUBJECTIVE: The patient is doing well today with no other complaints. Creatinine did improve to 1.1. White count increased to 16.8. She is not on any steroids. LABORATORY DATA: Show white count 16.8, hemoglobin 9.7, hematocrit 29.5, and platelets of 147. Chemistry, sodium 137, potassium 4.2, chloride 112, bicarb is 18, anion gap of 11, BUN is 36, creatinine 1.1, glucose is 99, calcium is 8.2, magnesium is 1.9. Immunology, C3 is 157, normal; C4 of 57; TSH 60. Microbiology, urine culture positive for Klebsiella pneumoniae. OBJECTIVE: VITAL SIGNS: Temperature 96.7, pulse 78, respiratory rate is 18, blood pressure is 154/65, pulse ox 97% on room air. GENERAL: In no acute distress. Alert and oriented x3. Cooperative on examination. HEENT: Head is normocephalic, atraumatic. Eyes, pupils are equal, round, and reactive to light bilaterally. Extraocular movements are intact bilaterally. Throat, no evidence of erythema or exudates in the posterior pharynx. Has poor dentition. NECK: Supple. Good range of motion. PULMONARY: Clear to auscultation bilaterally. No wheezing, no rales, no rhonchi, no crackles appreciated. CARDIOVASCULAR: Positive S1, S2. No murmurs, rubs, or gallops. ABDOMEN: Soft, nontender to palpation. Bowel sounds present. MUSCULOSKELETAL: Strength is 5/5 throughout. No evidence of any muscle deficits on examination. No weakness appreciated. NEUROLOGICAL: Cranial nerves II through XII grossly intact. No evidence of any neurological deficits on exam. SKIN: Intact. Warm to touch. Good cap refill. PSYCHIATRIC: Normal affect and mood. EXTREMITIES: No edema. Good range of motion throughout. IMPRESSION: 1. Acute kidney injury secondary to prerenal azotemia with secondary to dehydration, now improved creatinine 1.1. 2. Hematuria. 3. Left renal mass. 4. Hyponatremia, resolved. 5. Pyelonephritis secondary to urinary tract infection. PLAN: At this time, creatinine improved to 1.1. Continue with IV fluids, hydration, and get a CT with IV contrast renal mass protocol. This has been ordered already. Discussed with nursing staff as well. Continue with IV antibiotics. I discussed this with the patient as well to evaluate this renal mass. Apparently, after further discussion, she has known about this for about a year now and has not pursued it at all by any physician. At this time, we will continue same plan of care and get the CT renal mass protocol. MD ANNE Cadet/MARLON /[id number]
[2018-06-08] MEDS: MAGNESIUM/ALUMINUM/SIMETHICONE 30 ML UDC PO PRN (18:12)
[2018-06-08] MEDS: CEFTRIAXONE SOD 1 GM/NS 50 ML 50 ML IV SCH (18:13)
--- NOTE | 2018-06-08 19:00 | NUR ---
Received patient from day nurse for continuity of care, patient is currently stable, will continue to monitor.
[2018-06-09] VITALS (8 sets, daily range): BP systolic 127–186; BP diastolic 61–77
[2018-06-09] MEDS: MORPHINE SULFATE INJ 4 MG/ML INJ 1ML IV PRN ×2 (00:36→13:17)
[2018-06-09] MEDS: ONDANSETRON HCL INJ 2MG/ML 2ML 2 MG/ML VIAL IV PRN ×4 (00:37→23:40)
--- NOTE | 2018-06-09 00:38 | NUR ---
PATIENT C/O PAIN TO THE ABDOMEN WITH PAIN SCORE #7, MEDICATED WITH MORPHINE AND ZOFRAN ORDERED. CALL LIGHT WITHIN EASY REACH, BED ALARM ON, PATIENT INSTRUCTED TO CALL FOR ASSISTANCE NEEDED.
--- NOTE | 2018-06-09 00:50 | Progress Note ---
DATE: 06/08/2018 Internal Medicine Progress Note. SUBJECTIVE: Ms. Hwang was seen and examined at bedside. She went for CT abdomen with contrast enhancement, was not conclusive for any noninfectious pathology. Still some inflammatory type reaction at the left kidney. The patient ate about 25% of her diet. There was some pain, but it is better. She did not walk. White count was remaining elevated at 17,000. REVIEW OF SYSTEMS: No bleeding, no diarrhea. OBJECTIVE: VITAL SIGNS: Afebrile, vital signs noted per the chart record. GENERAL: No acute distress, pale, but better. HEENT: Normocephalic, atraumatic. NECK: Supple. Throat midline. LUNGS: Bilateral air entry, limited, but clear. CARDIOVASCULAR: S1, S2. No murmurs, rubs, or gallops. ABDOMEN: Soft, nontender. EXTREMITIES: No clubbing, no cyanosis, there is no edema. INTEGUMENT: No rash. No purpura. LABORATORY DATA: 4.2 potassium, 36 BUN, 1.1 creatinine. 18 bicarbonate. Hematocrit 29, platelets 147. LFTs continue to trend better. IMPRESSION AND PLAN: 1. Left pyelonephritis. 2. Persistent leukocytosis. 3. Lingering metabolic acidosis. 4. Klebsiella pneumoniae urinary tract infection. 5. Diabetes, uncontrolled, better. 6. Acute kidney failure, improving. At this time, we will repeat morning chemistry. Continue to follow white count, ensure gets better. Continue outpatient repeat CT of the kidneys, ensure improvement. Continue to mobilize the patient further. Continue DVT prophylaxis with heparin. Antibiotic to be continued. MD RITO Ortega/MODL /[id number]
--- NOTE | 2018-06-09 04:22 | NUR ---
PATIENT IS SOUNDLY ASLEEP, SHE'S EASY TO AROUSE. NO RESPIRATORY DISTRESS OBSERVED, SHE DENIES PAIN. BED ALARM ON, CALL LIGHT WITHIN EASY REACH.
[2018-06-09 05:41] LABS: BASOPHILS # (AUTO) 0.1 (0.0-0.1); BASOPHILS % 0.3 % (0.0-1.0); EOSINOPHILS # (AUTO) 0.3 (0.0-0.4); EOSINOPHILS % 1.6 % (0.0-6.0); HEMATOCRIT 27.9 % (34.2-44.1); LYMPHOCYTES % 5.6 % (18.0-39.1); MEAN CORPUSCULAR HGB CONC 32.3 g/dL (31-35); MONOCYTES # (AUTO) 0.8 (0.2-0.8); MONOCYTES % 4.7 % (4.4-11.3); PLATELET COUNT 173 x10e3/uL (140-360); RED CELL DISTRIBUTION WIDTH 15.6 % (11.7-14.4)
[2018-06-09 06:13] LABS: ANION GAP 9.3 mmol/L (8-16); BLOOD UREA NITROGEN 24 mg/dL (7-26); BUN/CREATININE RATIO 28 (6-25); CARBON DIOXIDE 18 mmol/L (22-29); CHLORIDE 111 mmol/L (98-107); CREATININE, SERUM 0.87 mg/dL (0.57-1.11); EST GLOMERULAR FILTRATION RATE > 60 ML/MIN (60-); GLUCOSE 87 mg/dL (74-118); MAGNESIUM 1.8 MG/DL (1.3-2.1); POTASSIUM 4.3 mmol/L (3.5-5.1); SODIUM 134 mmol/L (136-145)
[2018-06-09 06:59] LABS: BAND NEUTROPHILS % (MANUAL) 2 %; EOSINOPHILS % (MANUAL) 2 % (0-7); LYMPHOCYTES % (MANUAL) 5 % (19-48); MONOCYTES % (MANUAL) 10 % (3.4-9.0); NEUTROPHILS % (MANUAL) 81 % (40-74)
[2018-06-09 07:00] LABS: PLATELET ESTIMATE ADEQUATE; PLATELET MORPHOLOGY COMMENT NORMAL; RBC MORPHOLOGY COMMENT NORMAL
[2018-06-09] MEDS: INSULIN REGULAR, HUMAN 100 UNIT/1 ML 3ML VIAL SQ SCH ×4 (07:30→21:00)
[2018-06-09] MEDS: SODIUM CHLORIDE 0.9% 1000ML 1,000 ML IV SCH (09:10)
[2018-06-09] MEDS: DOCUSATE SODIUM 100 MG CAP PO SCH ×2 (09:10→17:15)
--- NOTE | 2018-06-09 09:10 | NUR ---
Pt received resting comfortably in bed. Call harris within reach. All meds given as ordered. Will monitor
[2018-06-09] MEDS: HEPARIN SOD (PORCINE) 5,000 UNIT/ML VIAL SC SCH ×2 (09:11→21:30)
[2018-06-09] MEDS ORDERED: LACTULOSE SYRUP 20 GM/30 ML UDC PO PRN (09:15)
[2018-06-09] MEDS: MAGNESIUM/ALUMINUM/SIMETHICONE 30 ML UDC PO PRN (13:12)
--- NOTE | 2018-06-09 16:14 | Progress Note ---
DATE: 06/09/2018 Nephrology Progress Note SUBJECTIVE: The patient is complaining having some nausea during my evaluation. Discussed with her spouse, she is on nausea medication. Otherwise, she is doing well. CT of the renal mass protocol has been ordered and evaluated. OBJECTIVE: VITAL SIGNS: Temperature 96.6, pulse 97, respiratory rate is 18, blood pressure is 127/61, and pulse ox 95% on room air. GENERAL: Not in acute distress. Alert and oriented x3. Cooperative on examination. HEENT: Head is normocephalic and atraumatic. Eyes; pupils are equal, round, and reactive to light bilaterally. Extraocular movements are intact bilaterally. Throat, no evidence of any erythema or exudates in the posterior pharynx. Has poor dentition. NECK: Supple. Good range of motion. PULMONARY: Clear to auscultation bilaterally. No wheezing, no rales, no rhonchi, no crackles appreciated. CARDIOVASCULAR: Positive S1, S2. No murmurs, rubs, or gallops appreciated. ABDOMEN: Soft, nondistended, and nontender to palpation. Bowel sounds present. MUSCULOSKELETAL: Strength is 5/5 throughout. No evidence of any muscle deficits on examination. No weakness appreciated. NEUROLOGICAL: Cranial nerves II through XII grossly intact. No evidence of any neurological deficits on exam. SKIN: Intact. Warm to touch. Good cap refill. PSYCHIATRIC: Normal affect and mood. EXTREMITIES: No edema. Good range of motion throughout. LAB FINDINGS: Show white count is 17.5, gradually increasing, hemoglobin 9, hematocrit 27.9, and platelets of 173. Chemistry; sodium 134, potassium 4.3, chloride 111, bicarb 18, anion gap of 9, BUN 24, creatinine is 0.87, glucose is 87, calcium is 8, and magnesium is 1.8. MICROBIOLOGY: Noted. IMAGING STUDIES: Repeat CT abdomen and pelvis with renal mass protocol shows upper pole of the left kidney is large and edematous. There are multiple low-density areas of hypoperfusion within the upper pole and lateral midportion of the left kidney suggesting pyelonephritis or renal phlegmon with lobar nephronia. No discrete drainable abscess collection seen. The process does extend slightly beyond the renal with thickening of the Gerota fascia. They recommend CT repeat after resolution and treatment for further evaluation. No hydronephrosis or renal calculus. Mild wall thickening of the urinary bladder suggests possible . IMPRESSION: 1. Acute kidney injury secondary to prerenal azotemia secondary to dehydration, now improved creatinine. 2. Hematuria. 3. Left renal mass seen on source imaging CT, but now . 4. Hyponatremia, resolved. 5. Pyelonephritis secondary to urinary tract infection. PLAN: CT abdomen and pelvis, renal mass protocol has been reviewed and evaluated and shows no evidence of any renal mass at this moment, but needs repeat CT as an outpatient. Otherwise from a renal standpoint, electrolytes are stable. Her white count seems to be elevated. She is on IV antibiotics. Urology and primary team are following closely. Her electrolytes and creatinine are back to normal. We will continue to follow with the primary team as well. Discussed plan of care with nursing staff. MD ANNE Cadet/MARLON /[id number]
[2018-06-09] MEDS: CEFTRIAXONE SOD 1 GM/NS 50 ML 50 ML IV SCH (17:14)
--- NOTE | 2018-06-09 19:50 | NUR ---
PATIENT SITTING UP IN THE RECLINER, NO ACUTE DISTRESS OBSERVED. SKIN INTEGRITY INTACT, NON PITTING EDEMA NOTED TO THE LEGS. PATIENT EDUCATED TO KEEP THE LEGS ELEVATED WHILE SITTING. SHE DENIES PAIN, CALL LIGHT WITHIN EASY REACH, FAMILY MEMBERS VISITING WITH THE PATIENT.
--- NOTE | 2018-06-09 21:30 | Progress Note ---
DATE: 06/09/2018 Internal Medicine Progress Note. SUBJECTIVE: Ms. Hwang was seen and examined at bedside. She continues to have slow progress. Still some pain to the left flank and left abdomen. She is, however, able to eat. Room air oxygen. Normal saline 125 mL/h with improving creatinine again. REVIEW OF SYSTEMS: No bleeding, no headaches. OBJECTIVE: VITAL SIGNS: Afebrile, vital signs noted per the chart record. GENERAL: In no acute distress, alert and calm. HEENT: Normocephalic, atraumatic. NECK: Supple. Throat midline. LUNGS: Bilateral air entry, rare rhonchi. CARDIOVASCULAR: S1, S2. No murmurs, rubs, or gallops. ABDOMEN: Soft, obese, nontender mostly, although tender slightly on the flank. EXTREMITIES: No clubbing, no cyanosis, no edema. INTEGUMENT: No rash. No purpura. LABORATORY DATA: 17.5 white count, 28 hematocrit, and 133 platelets. IMPRESSION AND PLAN: 1. Pyelonephritis. 2. Abnormal appearance left kidney on computed tomography, possibly infectious, possibly other. 3. Diabetes. 4. Anemia. Continue IV antibiotics. Repeat white count tomorrow and consider discharge if it is significantly trending improved. The patient will have continued control of glucose levels. Give lactulose for constipation. We will stop the IV fluids and as of now, we will not repeat the chemistry. MD RITO Ortega/MARLON /[id number]
--- NOTE | 2018-06-09 23:40 | NUR ---
PATIENT C/O NAUSEA BUT DENIES PAIN, MEDICATED WITH ZOFRAN ORDERED. ASSISTED WITH ADLS, BED ALARM ON, CALL LIGHT WITHIN EASY REACH.
[2018-06-10] VITALS (7 sets, daily range): BP systolic 164–196; BP diastolic 72–84
--- NOTE | 2018-06-10 03:15 | NUR ---
PATIENT IS ASLEEP, SHE'S EASY TO AROUSE. NO RESPIRATORY DISTRESS OBSERVED, SHE DENIES PAIN. BED ALARM ON, CALL LIGHT WITHIN EASY REACH.
[2018-06-10 05:35] LABS: BASOPHILS # (AUTO) 0.1 (0.0-0.1); BASOPHILS % 0.3 % (0.0-1.0); EOSINOPHILS # (AUTO) 0.4 (0.0-0.4); EOSINOPHILS % 2.2 % (0.0-6.0); HEMATOCRIT 26.9 % (34.2-44.1); HEMOGLOBIN 8.8 g/dL (12.0-16.0); LYMPHOCYTES # (AUTO) 0.9 (1.0-3.2); LYMPHOCYTES % 5.7 % (18.0-39.1); MEAN CORPUSCULAR HEMOGLOBIN 29.3 pg (28-32); MEAN CORPUSCULAR HGB CONC 32.7 g/dL (31-35); MEAN CORPUSCULAR VOLUME 89.7 fL (81-99); MONOCYTES # (AUTO) 0.8 (0.2-0.8); MONOCYTES % 5.2 % (4.4-11.3); NEUTROPHILS # (AUTO) 13.1 (2.1-6.9); NEUTROPHILS % 82.3 % (38.7-80.0); PLATELET COUNT 201 x10e3/uL (140-360); RED CELL DISTRIBUTION WIDTH 15.9 % (11.7-14.4)
[2018-06-10 06:01] LABS: ANION GAP 9.3 mmol/L (8-16); BLOOD UREA NITROGEN 15 mg/dL (7-26); BUN/CREATININE RATIO 18 (6-25); CALCIUM 8.1 mg/dL (8.4-10.2); CARBON DIOXIDE 20 mmol/L (22-29); CHLORIDE 109 mmol/L (98-107); CREATININE, SERUM 0.85 mg/dL (0.57-1.11); EST GLOMERULAR FILTRATION RATE > 60 ML/MIN (60-); GLUCOSE 137 mg/dL (74-118); POTASSIUM 4.3 mmol/L (3.5-5.1); SODIUM 134 mmol/L (136-145)
[2018-06-10 06:02] LABS: EOSINOPHILS % (MANUAL) 2 % (0-7); LYMPHOCYTES % (MANUAL) 6 % (19-48)
[2018-06-10 06:03] LABS: BAND NEUTROPHILS % (MANUAL) 3 %; MONOCYTES % (MANUAL) 5 % (3.4-9.0); NEUTROPHILS % (MANUAL) 84 % (40-74); PLATELET ESTIMATE ADEQUATE; PLATELET MORPHOLOGY COMMENT NORMAL
[2018-06-10 06:04] LABS: RBC MORPHOLOGY COMMENT NORMAL
[2018-06-10] MEDS: INSULIN REGULAR, HUMAN 100 UNIT/1 ML 3ML VIAL SQ SCH ×4 (07:30→21:10)
[2018-06-10] MEDS: DOCUSATE SODIUM 100 MG CAP PO SCH ×2 (09:00→19:47)
[2018-06-10] MEDS: HEPARIN SOD (PORCINE) 5,000 UNIT/ML VIAL SC SCH ×2 (09:30→21:08)
--- NOTE | 2018-06-10 09:30 | NUR ---
Pt received resting in bed with at bedside. All meds given as ordered. call harris within reach. Will monitor
[2018-06-10] MEDS ORDERED: PANTOPRAZOLE SOD 40 MG TABEC PO SCH (12:00)
[2018-06-10] MEDS: PANTOPRAZOLE SOD 40 MG TABEC PO SCH ×2 (12:39→19:47)
[2018-06-10] MEDS: LOSARTAN POTASSIUM 100 MG TAB PO SCH (12:39)
--- NOTE | 2018-06-10 13:37 | Progress Note ---
DATE: 06/10/2018 SUBJECTIVE: The patient is doing well today with no complaints. Her blood pressure is elevated, which I restarted her losartan. OBJECTIVE: VITAL SIGNS: Temperature 97.5, pulse 97, respiratory rate is 20, blood pressure is 160/72, pulse ox is 96% on room air. Last systolic blood pressure was greater than 190s, currently not in this . GENERAL: Not in acute distress. Alert and oriented x3. Cooperative on examination. HEENT: Head is normocephalic and atraumatic. Eyes; pupils are equal, round, and reactive to light bilaterally. Extraocular movements are intact bilaterally. Throat, no evidence of any erythema or exudates in the posterior pharynx. Has poor dentition. NECK: Supple. Good range of motion. PULMONARY: Clear to auscultation bilaterally. No wheezing, no rales, no rhonchi, no crackles appreciated. CARDIOVASCULAR: Positive S1, S2. No murmurs, rubs, or gallops appreciated. ABDOMEN: Soft, nondistended, and nontender to palpation. Bowel sounds present. MUSCULOSKELETAL: Strength is 5/5 throughout. No evidence of any muscle deficits on examination. No weakness appreciated. NEUROLOGICAL: Cranial nerves 2 through 12 grossly intact. No evidence of any neurological deficits on exam. SKIN: Intact. Warm to touch. Good cap refill. PSYCHIATRIC: Normal affect and mood. EXTREMITIES: No edema. Good range of motion throughout. LABORATORY DATA: Labs show white count 15.9, hemoglobin 8.8, hematocrit is 26.9, and platelets of 201. Chemistry; sodium 134, potassium 4.3, chloride 109, bicarb is 29, anion gap of 9.3, BUN is 15, creatinine is 0.85, glucose 137, calcium is 8.1. MICROBIOLOGY: Shows urine culture Klebsiella pneumoniae. IMAGING STUDIES: None. IMPRESSION: 1. Acute kidney injury secondary to prerenal azotemia secondary to dehydration, now creatinine improved, back to baseline. 2. Hematuria. 3. Left renal mass seen on CT. Will need outpatient repeat CT. 4. Hyponatremia, resolved. 5. Pyelonephritis secondary to urinary tract infection with underlying leukocytosis. 6. Acid reflux. PLAN: Start her on Protonix 40 mg p.o. b.i.d. Restart her home antihypertensive medications, losartan 100 mg p.o. daily, first dose now. from a renal standpoint, her creatinine is stable. No evidence of hematuria. White count is slightly improving. Get a.m. labs. Continue with IV antibiotics. We will need an outpatient repeat imaging to determine if that left kidney has improved. At this time, we will continue to monitor her very closely. We will continue to follow with the primary team. MD ANNE Cadet/MODGabbi /[id number]
[2018-06-10] MEDS: CEFTRIAXONE SOD 1 GM/NS 50 ML 50 ML IV SCH (19:47)
--- NOTE | 2018-06-10 19:53 | NUR ---
RECEIVED PT IN BED AOX3 .RESPIRATIONS ARE EVEN AND UNLABORED .FAMILY AT THE BEDSIDE .CALL LIGHT WITH IN REACH .CONTINUE TO MONITOR
--- NOTE | 2018-06-10 23:44 | Progress Note ---
DATE: 06/10/2018 SUBJECTIVE: Ms. Hwang was seen and examined at bedside. She has mildly increased blood pressure today. The patient with some complaints of repetitive GERD. She continued to eat despite the pain that she has. She took some Maalox with some subjective benefit, although the patient is having some odynophagia. REVIEW OF SYSTEMS: No headaches. No rash. OBJECTIVE: VITAL SIGNS: Afebrile. Vital signs noted per the chart record. GENERAL: In no acute distress, alert and calm. HEENT: Normocephalic and atraumatic. NECK: Supple. Throat midline. LUNGS: Bilateral air entry, clear. CARDIOVASCULAR: S1 and S2. No murmurs, rubs, or gallops. ABDOMEN: Soft and nontender. EXTREMITIES: No clubbing. No cyanosis. There is no edema. No rash. No purpura. LABORATORY DATA: BUN 15, creatinine 0.9. White count 16, hematocrit 27, and platelets 201. IMPRESSION AND PLAN: 1. Hypertensive urgency. 2. Gastroesophageal reflux disease, recurrences. 3. Severe urinary tract infection, pyelonephritis, Klebsiella. 4. Nonspecific left renal abnormality, possible mass versus other. 5. Escalate blood pressure medications. The patient will have continued oral nutrition. Continue Maalox for GERD. Additional PPI was started. GI consult will be made in case the patient is not better by tomorrow. Consideration for other evaluation can be done. Upper GI series was ordered as the patient has multiple nonspecific complaints. Continue antibiotics for now and consider discharge home tomorrow if the patient is better. Review CBC. MD RITO Ortega/MARLON /[id number]
[2018-06-11] VITALS (9 sets, daily range): BP systolic 143–199; BP diastolic 60–88
[2018-06-11] MEDS: MORPHINE SULFATE INJ 4 MG/ML INJ 1ML IV PRN ×2 (05:07→11:05)
[2018-06-11] MEDS: ONDANSETRON HCL INJ 2MG/ML 2ML 2 MG/ML VIAL IV PRN ×2 (05:08→11:05)
--- NOTE | 2018-06-11 05:35 | NUR ---
PT C/O PAIN AT THE ABD AND GIVEN ORDERED PAIN MEDICATION.CONTINUE TO MONITOR
--- NOTE | 2018-06-11 07:02 | NUR ---
RECEIVED PATIENT RESTING IN BED. NO ACUTE DISTRESS NOTED. FAMILY AT BEDSIDE. CALL LIGHT WITHIN REACH. BED IN THE LOWEST POSITION.
--- NOTE | 2018-06-11 07:20 | NUR ---
REPORT GIVEN TO THE ONCOMING NURSE
[2018-06-11] MEDS: INSULIN REGULAR, HUMAN 100 UNIT/1 ML 3ML VIAL SQ SCH ×4 (07:30→21:00)
[2018-06-11 08:16] LABS: BASOPHILS % 0.2 % (0.0-1.0); EOSINOPHILS # (AUTO) 0.1 (0.0-0.4); EOSINOPHILS % 0.5 % (0.0-6.0); HEMATOCRIT 29.7 % (34.2-44.1); HEMOGLOBIN 9.5 g/dL (12.0-16.0); LYMPHOCYTES # (AUTO) 0.8 (1.0-3.2); LYMPHOCYTES % 4.8 % (18.0-39.1); MEAN CORPUSCULAR VOLUME 90.5 fL (81-99); MONOCYTES # (AUTO) 0.7 (0.2-0.8); MONOCYTES % 4.3 % (4.4-11.3); NEUTROPHILS # (AUTO) 13.7 (2.1-6.9); NEUTROPHILS % 86.6 % (38.7-80.0); PLATELET COUNT 220 x10e3/uL (140-360); RED BLOOD COUNT 3.28 x10e6/uL (3.6-5.1); RED CELL DISTRIBUTION WIDTH 15.6 % (11.7-14.4)
[2018-06-11 08:31] LABS: ANION GAP 12.3 mmol/L (8-16); BLOOD UREA NITROGEN 11 mg/dL (7-26); BUN/CREATININE RATIO 13 (6-25); CALCIUM 8.8 mg/dL (8.4-10.2); CARBON DIOXIDE 21 mmol/L (22-29); CHLORIDE 102 mmol/L (98-107); CREATININE, SERUM 0.82 mg/dL (0.57-1.11); EST GLOMERULAR FILTRATION RATE > 60 ML/MIN (60-); GLUCOSE 148 mg/dL (74-118); POTASSIUM 4.3 mmol/L (3.5-5.1); SODIUM 131 mmol/L (136-145)
[2018-06-11] MEDS: LOSARTAN POTASSIUM 100 MG TAB PO SCH (08:52)
[2018-06-11] MEDS: PANTOPRAZOLE SOD 40 MG TABEC PO SCH ×2 (08:52→17:30)
[2018-06-11] MEDS: HEPARIN SOD (PORCINE) 5,000 UNIT/ML VIAL SC SCH ×2 (08:52→21:24)
[2018-06-11] MEDS: DOCUSATE SODIUM 100 MG CAP PO SCH ×2 (08:52→17:30)
--- NOTE | 2018-06-11 13:20 | NUR ---
Nutrition Screen Note RD Recommendation for Physician: -Continue current diet. Plan of Care: RD following, monitoring for tolerance and adequacy Nutrition reason for involvement: LOS Primary Diagnose(s): ANSON, Hematuria, hyperglycemia, pyelonephrit PMH: Hypertension, diabetes, GERD, hyperlipidemia and vitamin D deficiency. Ht: 62 in Wt: 147 lb BMI: 26.8 kg/m2 IBW: [address] Assessment: 06/11: 68 YOF admitted for ANSON, Hematuria, hyperglycemia, pyelonephrit. Pt was seen resting with at bedside. They can speak some [place]- was able to communicate appropriately with pt regarding food intake. Pts reports that her food consumption has been decreased and she eats very little. Within EMR-50% of meals have been consumed. Pt stated she is NPO currently d/t pending procedure. Pt stated she can not eat well sometimes d/t pain in her esophagus GERD is recorded in progress notes. Pt will be continued on oral nutrition as of now, pt is on Maalox and additional PPI and GI may be consulted based on pts progress and upper GI series has been ordered per progress note. Chart reviewed. Noted- Gluc elevated. Labs and meds reviewed. Will continue to monitor. Current Diet: ADA diet 1800 Malnutrition Evaluation (06/11) The patient does not meet criteria for a specified degree of malnutrition at this time. Will re-evaluate at follow-up as appropriate. Diet Education Needs Assessment: Diet education not indicated. Nutrition Care Level: low Signed: Maggy Adams RD, LD Addendum: 06/11/18 at [address] rec for physician: -Consider BETA TESTER consult d/t pt's report of swallowing difficulty- spoke with nurse about consult.
--- NOTE | 2018-06-11 13:53 | NUR ---
TRIED TO GET A HOLD OF DR. Ba HAHN IN ENDOSCOPY TO NOTIFY HIM THAT PATIENT IS HAVING A LOT OF ABD PAIN, AND TOLD BY DR. MONTERO THAT IS THE ONLY REASON THAT'S HOLDING DISCHARGE. DR. Ba HAHN IS IN A CASE. WILL ATTEMPT TO GET A HOLD OF HIM LATER.
--- NOTE | 2018-06-11 14:05 | Diagnostic Imaging Report ---
Exam: KUB - 2 views Clinical History: Abdominal pain. Comparison: CT abdomen/pelvis 06/08/2018. Findings: Nonobstructive bowel gas pattern. No evidence of free intraperitoneal air. No evidence of abnormal calcification. No acute bony abnormality. Patchy opacities of the lung bases, likely atelectasis. Impression: No acute radiographic abnormality. Signed by: Dr. Maura Staples MD on 06/11/2018 2:01 PM
--- NOTE | 2018-06-11 14:30 | NUR ---
NOTIFIED DR. Ba HAHN OF DR. MONTERO'S CONCERN ABOUT PATIENT'S ABD PAIN, AND HOLDING DISCHARGE DUE TO IT. PER DR. HAHN WAITING OF UPPER GI STUDY RESULTS. THEN HE WILL DECIDE THE NEXT STEP.
--- NOTE | 2018-06-11 14:33 | Progress Note ---
DATE: 06/11/2018 Nephrology Progress Note SUBJECTIVE: The patient is complaining of abdominal distention and abdominal pain during my evaluation. I discussed this case with the primary attending. We agreed to order a KUB. She has had several CTs twice in hospital stay. The patient is currently getting pain medication. LABORATORY DATA: Show WBC 15.7, hemoglobin 9.5, hematocrit 29.7, and platelets of 220. Chemistries; sodium 131, potassium 4.3 chloride 102, bicarb 29, anion gap of 12, BUN is 11, creatinine is 0.82, glucose is 138, calcium is 8.8. MICROBIOLOGY: Nothing new. IMAGING STUDIES: KUB stat has been ordered. PHYSICAL EXAMINATION: VITAL SIGNS: Temperature is 97.4, pulse 93, respiratory rate is 20, blood pressure is 189/79, pulse ox is 100% on room air. GENERAL: Alert and oriented x3. Cooperative on examination. HEENT: Head is normocephalic and atraumatic. Eyes; pupils are equal, round, and reactive to light bilaterally. Extraocular movements are intact bilaterally. Throat, no evidence of any erythema or exudates in the posterior pharynx. Has poor dentition. NECK: Supple. Good range of motion. PULMONARY: Clear to auscultation bilaterally. No wheezing, no rales, no rhonchi, no crackles appreciated. CARDIOVASCULAR: Positive S1, S2. No murmurs, rubs, or gallops appreciated. ABDOMEN: Distended, mild tender to palpation on exam, but no rebound. No guarding. MUSCULOSKELETAL: Strength is 5/5 throughout. No evidence of any muscle deficits on examination. No weakness appreciated. NEUROLOGICAL: Cranial nerves 2 through 12 grossly intact. No evidence of any neurological deficits on exam. SKIN: Intact. Warm to touch. Good cap refill. PSYCHIATRIC: Normal affect and mood. EXTREMITIES: No edema. Good range of motion throughout. IMPRESSION: 1. Acute kidney injury secondary to periods of secondary dehydration, now creatinine improved back to baseline. 2. Hematuria, resolved. 3. Left renal mass seen on CT. Repeat CT not convincing for renal mass, but needs repeat CT as an outpatient with Urology. 4. Hyponatremia, resolved. 5. Pyelonephritis secondary to urinary tract infection with underlying leukocytosis. 6. Acid reflux. 7. Abdominal pain with abdominal distention. PLAN: At this time acid reflux has resolved with Protonix. I did order a stat KUB due to abdominal distention and pain. Discussed this with the primary attending as well by phone, talked with the nurse about the plan of care and she was there and verbalized understanding the patient. I also had the nurse as the product development manager and discussed plan of care with her right now. I did discuss with her I am going to get a stat KUB to further evaluate and assess. She verbalized understanding. White count is still 15 and elevated on IV antibiotics. From a renal standpoint, she is doing well. She is seen as an outpatient for further evaluation for renal mass. MD ANNE Cadet/MARLON /[id number]
--- NOTE | 2018-06-11 14:50 | NUR ---
PAGED DR. MONTERO TO NOTIFY HIM THAT PATIENT IS NAUSEATED AND WANTS TO DO THE UPPER GI STUDY TOMORROW INSTEAD.
[2018-06-11] MEDS: CEFTRIAXONE SOD 1 GM/NS 50 ML 50 ML IV SCH (15:15)
--- NOTE | 2018-06-11 15:29 | NUR ---
NOTIFY DR. MONTERO THAT PATIENT UNABLE TO HAVE UPPER GI STUDY DUE TO BEING NAUSEATED AND VOMITING X2. PER DR. MONTERO DIFFER TO GI MD.
--- NOTE | 2018-06-11 16:11 | NUR ---
NOTIFIED DR. Ba HAHN OF UPPER GI STUDY BEING CANCELLED FOR TODAY AND ASKED IF PATIENT COULD EAT, PER DR. HAHN PATIENT CANNOT EAT UNTIL HE EXAMINES HER.
--- NOTE | 2018-06-11 19:15 | NUR ---
REPORT GIVEN TO ONCOMING NURSE, WALKING ROUNDS DONE. PATIENT IS IN STABLE CONDITION. AT BEDSIDE. CALL LIGHT WITHIN REACH. BED IN THE LOWEST POSITION.
--- NOTE | 2018-06-11 19:31 | NUR ---
RECEIVED PT IN BED AOX3 .PT C/O PAIN .DR HAHN CALLED AND GIVEN THE ORDER FOR [id number] MG STAT AND Q6HRS .FAMILY AT THE BEDSIDE .CALL LIGHT WITH IN REACH .CONTINUE TO MONITOR
[2018-06-11] MEDS ORDERED: METOCLOPRAMIDE HCL 10 MG/2ML VIAL IV NR (19:45)
[2018-06-11] MEDS ORDERED: MAGNESIUM HYDROXIDE 30 ML UDC PO ONE (22:45)
[2018-06-12] VITALS (10 sets, daily range): BP systolic 118–184; BP diastolic 64–84
[2018-06-12 00:53] LABS: AMYLASE 34 U/L (25-125); LIPASE 19 U/L (8-78)
--- NOTE | 2018-06-12 03:25 | Progress Note ---
DATE: 06/11/2018 Internal Medicine Progress Note. SUBJECTIVE: Ms. Hwang was seen and evaluated at bedside. She is walking in the room. She keeps complaining of abdominal distention. She complains that this is quite severe in terms of pain, it is contributing to her abdomen. The patient had nausea and vomiting, and was not able to get the upper GI series performed. Room air FiO2, 99% oxygen saturation. REVIEW OF SYSTEMS: No chest pain, no rash. OBJECTIVE: VITAL SIGNS: Afebrile, vital signs noted per the chart record. GENERAL: In no acute distress, alert and calm. HEENT: Normocephalic, atraumatic. NECK: Supple. Throat midline. LUNGS: Bilateral air entry clear. CARDIOVASCULAR: S1, S2. No murmurs, rubs, or gallops. ABDOMEN: Soft, nontender. EXTREMITIES: No clubbing, no cyanosis. There is no edema. INTEGUMENT: No rash. No purpura. LABS: 16 white count, 30 hematocrit, 220 platelets. Sodium 131, potassium 4.2, creatinine 0.8. IMPRESSION AND PLAN: 1. Acute pyelonephritis. 2. Symptomatic gastroesophageal reflux disease. 3. Other lower abdominal symptoms, not otherwise specified. As of yet, radiography could not explain the pain. She is probably slightly swollen due to severe sepsis that she had. 4. Klebsiella pneumonia and pyelonephritis. Upper GI series will be held for now. We will await GI consultation. Consideration for pancreatic enzymes to be sent off. We will follow along with GI and it is unclear if they need any further diagnostics rather than just perform a conservative treatment. For now, the patient to continue on Maalox at this time. She is on lactulose as needed. . Continue antibiotics for pyelonephritis. MD RITO Ortega/MARLON /[id number]
[2018-06-12 05:43] LABS: BASOPHILS # (AUTO) 0.1 (0.0-0.1); BASOPHILS % 0.5 % (0.0-1.0); EOSINOPHILS # (AUTO) 0.2 (0.0-0.4); EOSINOPHILS % 1.4 % (0.0-6.0); HEMATOCRIT 29.3 % (34.2-44.1); HEMOGLOBIN 9.7 g/dL (12.0-16.0); LYMPHOCYTES # (AUTO) 1.1 (1.0-3.2); LYMPHOCYTES % 8.8 % (18.0-39.1); MEAN CORPUSCULAR HEMOGLOBIN 29.5 pg (28-32); MEAN CORPUSCULAR HGB CONC 33.1 g/dL (31-35); MEAN CORPUSCULAR VOLUME 89.1 fL (81-99); MONOCYTES # (AUTO) 0.7 (0.2-0.8); MONOCYTES % 5.3 % (4.4-11.3); NEUTROPHILS # (AUTO) 10.1 (2.1-6.9); NEUTROPHILS % 79.9 % (38.7-80.0); PLATELET COUNT 249 x10e3/uL (140-360); RED BLOOD COUNT 3.29 x10e6/uL (3.6-5.1); RED CELL DISTRIBUTION WIDTH 15.5 % (11.7-14.4)
--- NOTE | 2018-06-12 05:57 | NUR ---
PT RESTING PT IS NPO FOR THE UPPER GI SERIES AND HIDAL SCAN DR HAHN HAVE SEEN THE PT DURING THE NIGHT .NO ACUTE DISTRESS NOTED FAMILY AT THE BEDSIDE .CONTINUE TO MONITOR
[2018-06-12 06:03] LABS: CLARITY,URINE SL CLOUDY (CLEAR); COLOR,URINE YELLOW (YELLOW); KETONES,URINE 1+ (NEGATIVE); LEUKOCYTE ESTERASE ,URINE 1+ (NEGATIVE); NITRITE,URINE NEGATIVE (NEGATIVE); PROTEIN,URINE DIPSTICK 1+ (NEGATIVE)
[2018-06-12 06:04] LABS: BILIRUBIN,URINE 2+ (NEGATIVE); URINE UROBILINOGEN 0.2 mg/dL (0.2 - 1)
[2018-06-12 06:20] LABS: BACTERIA,URINE FEW /HPF; WBC,URINE (MAN) >50 /HPF (0-5)
[2018-06-12 06:21] LABS: EPITHELIAL CELLS,URINE RARE /LPF; YEAST,URINE MANY
[2018-06-12 06:49] LABS: ALBUMIN 2.1 g/dL (3.5-5.0); ALBUMIN/GLOBULIN RATIO 0.5 (0.8-2.0); ANION GAP 16.3 mmol/L (8-16); CALCIUM 9.1 mg/dL (8.4-10.2); CREATININE, SERUM 0.97 mg/dL (0.57-1.11); POTASSIUM 4.3 mmol/L (3.5-5.1)
--- NOTE | 2018-06-12 07:02 | NUR ---
RECEIVED PATIENT RESTING IN BED. NO ACUTE DISTRESS NOTED. AT BEDSIDE. CALL LIGHT WITHIN REACH. BED IN THE LOWEST POSITION.
[2018-06-12] MEDS: METOCLOPRAMIDE HCL 10 MG/2ML VIAL IV SCH ×4 (07:21→17:20)
[2018-06-12] MEDS: INSULIN REGULAR, HUMAN 100 UNIT/1 ML 3ML VIAL SQ SCH ×4 (07:30→20:38)
[2018-06-12] MEDS: PANTOPRAZOLE SOD 40 MG TABEC PO SCH ×2 (08:46→16:30)
[2018-06-12] MEDS: DOCUSATE SODIUM 100 MG CAP PO SCH ×2 (08:46→16:30)
[2018-06-12] MEDS: LOSARTAN POTASSIUM 100 MG TAB PO SCH (08:46)
[2018-06-12] MEDS: HEPARIN SOD (PORCINE) 5,000 UNIT/ML VIAL SC SCH (08:48)
--- NOTE | 2018-06-12 09:29 | Diagnostic Imaging Report ---
PROCEDURE:X-RAY UPPER GI SERIES WITH AIR CONTRAST COMPARISON:None. INDICATIONS:Abdominal pain FINDINGS:The patient was given air crystals, thick barium, and thin barium to drink in upright and prone positions. Multiple images of the esophagus, stomach and duodenum were obtained. There is a small sliding hiatal hernia with active gastroesophageal reflux all the way to the thoracic inlet. The esophagus is otherwise normal in appearance without evidence of mucosal irregularity or stricture. The stomach and duodenum are normal without evidence of intrinsic mucosal or extrinsic abnormality. There is no evidence of ulcer or fold thickening. Fluoroscopy time: 1.4 minutes. Total dose: 48.012 mGy CONCLUSION:Sliding hiatal hernia with active gastroesophageal reflux. Nikita Fatima D.O. Dictated by: Nikita Fatima D.O. on 06/12/2018 at 9:30 Electronically approved by: Nikita Fatima D.O. on 06/12/2018 at 9:30
--- NOTE | 2018-06-12 12:33 | Progress Note ---
DATE: 06/12/2018 Nephrology Progress Note SUBJECTIVE: The patient is doing much better today with no new complaints. Abdominal pain is at minimal. PHYSICAL EXAMINATION: VITAL SIGNS: Temperature is 96.8, pulse 101, respiratory rate 20, blood pressure 118/80, pulse ox 93% on room air. GENERAL: Not in acute distress. Alert and oriented x3. Cooperative on examination. HEENT: Head is normocephalic and atraumatic. Eyes; pupils are equal, round, and reactive to light bilaterally. Extraocular movements are intact bilaterally. Throat, no evidence of any erythema or exudates in the posterior pharynx. Has poor dentition. NECK: Supple. Good range of motion. PULMONARY: Clear to auscultation bilaterally. No wheezing, no rales, no rhonchi, no crackles appreciated. CARDIOVASCULAR: Positive S1, S2. No murmurs, rubs, or gallops appreciated. ABDOMEN: Distended, mild tender to palpation on exam, but no rebound. No guarding. MUSCULOSKELETAL: Strength is 5/5 throughout. No evidence of any muscle deficits on examination. No weakness appreciated. NEUROLOGICAL: Cranial nerves 2 through 12 grossly intact. No evidence of any neurological deficits on exam. SKIN: Intact. Warm to touch. Good cap refill. PSYCHIATRIC: Normal affect and mood. EXTREMITIES: No edema. Good range of motion throughout. LABORATORY DATA: Lab findings show white count of 12.5, hemoglobin of 9.7, hematocrit is 29, platelets of 249. Chemistries; sodium 136, potassium 4.3, chloride 101, bicarb 29, anion gap of 16, BUN 13, creatinine 0.97, glucose is 131, calcium 9.1, albumin was 2.1. Lipase was 19. MICROBIOLOGY: Nothing new. IMAGING STUDIES: Upper GI series with contrast shows small hiatal hernia with active gastroesophageal reflux. IMPRESSION: 1. Acute kidney injury secondary to dehydration, now creatinine at baseline. 2. Hematuria, resolved. 3. Left renal mass seen on CT. Repeat CT shows no evidence of renal mass, but needs outpatient followup with Urology. 4. Hyponatremia, resolved. 5. Pyelonephritis secondary to urinary tract infection with underlying leukocytosis. 6. Acid reflux. 7. Abdominal pain with abdominal distention, now with upper GI series shows small hiatal hernia and underlying acid reflux. PLAN: At this time, from a renal standpoint her labs are stable. Electrolytes are stable as well. Follow with primary team. Get a.m. labs. Her white count has improved. Continue with IV antibiotics. MD ANNE Cadet/MARLON /[id number]
[2018-06-12] MEDS ORDERED: PANTOPRAZOLE SO40 MG PO (12:51)
[2018-06-12] MEDS ORDERED: REGLAN10 MG PO (12:51)
[2018-06-12] MEDS ORDERED: ONDANSETRON HCL4 MG PO (12:53)
[2018-06-12 13:47] LABS: EOSINOPHILS % (MANUAL) 1 % (0-7); LYMPHOCYTES % (MANUAL) 6 % (19-48); METAMYELOCYTES % (MANUAL) 1 % (0-0); MONOCYTES % (MANUAL) 3 % (3.4-9.0); MYELOCYTES % (MANUAL) 1 % (0-0); NEUTROPHILS % (MANUAL) 87 % (40-74); PROMYELOCYTES % (MANUAL) 1 % (0-0)
[2018-06-12 13:48] LABS: ANISOCYTOSIS SLIGHT; HYPOCHROMASIA SLIGHT; PLATELET ESTIMATE ADEQUATE; PLATELET MORPHOLOGY COMMENT NORMAL; RBC MORPHOLOGY COMMENT NORMAL
--- NOTE | 2018-06-12 14:30 | NUR ---
PATIENT OFF THE UNIT FOR SCAN.
--- NOTE | 2018-06-12 16:09 | NUR ---
PATIENT BACK TO UNIT FROM SCAN.
[2018-06-12] MEDS ORDERED: FLUCONAZOLE 200 MG/100 ML 100 ML IV SCH (16:30)
[2018-06-12] MEDS: CEFTRIAXONE SOD 1 GM/NS 50 ML 50 ML IV SCH (16:30)
--- NOTE | 2018-06-12 19:22 | NUR ---
REPORT GIVEN TO ONCOMING NURSE. PATIENT IS IN STABLE CONDITION. CALL LIGHT WITHIN REACH. BED IN THE LOWEST POSITION. NIGHT NURSE TO NOTIFY DR. HAHN OF HIDA SCAN RESULTS TO DECIDE IF PATIENT CAN BED DISCHARGED.
--- NOTE | 2018-06-12 20:00 | Diagnostic Imaging Report ---
Hepatobiliary Scan with Gallbladder Ejection Fraction Clinical information: Upper abdominal pain with nausea and vomiting Report: Following intravenous administration of 6.4 millicuries of Tc-99m mebrofenin, dynamic images of the abdomen in the anterior projection were obtained through 41 minutes. Sincalide (CCK analog) 1.4 micrograms was administered intravenously over 30 minutes with additional imaging for determination of gallbladder ejection fraction. Perfusion to the liver is normal. Extraction of tracer from the blood pool by the liver parenchyma is normal. Tracer is seen promptly within the biliary tract. The gallbladder begins to fill by 22 minutes post-injection of tracer and fills adequately. Tracer is seen in the small bowel during the sincalide infusion. The gallbladder ejection fraction with administration of sincalide is 70% (normal greater than 40%). Impression: 1. Filling of the gallbladder excludes the diagnosis of acute cystic duct obstruction/acute cholecystitis. 2. Normal gallbladder ejection fraction of 70% does not support the clinical diagnosis of chronic cholecystitis/gallbladder dyskinesia. Signed by: Dr. Britany Hurley M.D. on 06/12/2018 7:57 PM
--- NOTE | 2018-06-12 20:15 | NUR ---
SPOKE WITH DR. SELMA DANIELSRDING YOHANNES RESULTS. OK TO DISCHARGE PATIENT IF DR. MONTERO IS OK
--- NOTE | 2018-06-12 20:15 | NUR ---
GIVEN SANDWICH TO PATIENT AND INSTRUCTED TO CALL IF N/V.
--- NOTE | 2018-06-12 21:00 | NUR ---
SPOKE WITH DR. MONTERO. RUFINO TO D/C IF NO N/V.
--- NOTE | 2018-06-12 21:50 | NUR ---
PATIENT DENIES N/V. DISCHARGE ORDER RECEIVED.
--- NOTE | 2018-06-13 03:01 | Discharge Summary ---
PRIMARY CARE DOCTOR: Sanya Rivera MD. PRIMARY DIAGNOSIS: Left pyelonephritis. SECONDARY DIAGNOSES: Include: 1. Acute kidney failure. 2. Abnormal renal imaging, possible pyelonephritis versus mass. 3. Significant gastroesophageal reflux disease. 4. Diabetes. 5. Hypertension. 6. Mild constipation. 7. Gastropathy versus ileus. HOSPITAL COURSE: Ms. Hwang is a pleasant 68-year-old female, who came in with significant abdominal pain. She was not able to tolerate oral feeds due to nausea and vomiting. The patient had started initial antibiotics, but was worsening, so she came to emergency room. The patient was noted to have abdominal image demonstrating possible left renal mass, and urinalysis with large white blood count sediment. The patient was treated for left pyelonephritis. Abdominal imaging with contrast when her creatinine was better did not discern a definite mass. Creatinine was elevated, but on aggressive antibiotics and perfusion with IV fluid it normalized. The pain subsided in the abdomen, but the patient had residual difficulty tolerating food intake. There was a combination of abdominal pain in the general area as well as mid epigastric pain that radiated upwards to the sternal notch. The patient had upper GI series that definitely was consistent with GERD. The patient had repeated CAT scans of the abdomen due to this very difficult pain, but on the two abdominal CT no other pathology was found to be significant. Pancreatic enzymes are unremarkable. The patient did take in a lot of fluid during the resuscitation phase of her illness given she had the multiorgan dysfunction syndrome, which also included elevated LFTs. Prior to discharge, a HIDA was done and the HIDA showed normal ejection fraction on preliminary report. We allowed the patient to go home for outpatient followup. DIET: Diabetic, bland diet. ACTIVITY: As tolerated. MEDICATIONS ON DISCHARGE: Please see medication discharge record for details. FOLLOWUP: Follow up with Dr. Sanya Rivera in [address] Pereira of Urology to consider repeat imaging of the kidney and ensure normalizes. Dr. Reinier Samano to consider EGD in the future if the patient's symptoms remain. Greater than 30 minutes in direct care and coordination of this discharge. Severo Rubio MD GMN/MODL /[id number]
== END 2018-06-12 22:11 | disposition home or self-care (01) | DRG 689 ==
LOC: ER 12:24 → ERHOLD 14:39 → MED/SURG3 06-06 18:14
PROVIDERS: ADMIT Internal Medicine Critical Care Medicine; ATTEND Internal Medicine Critical Care Medicine
DX: N10 Acute pyelonephritis (principal); K72.00 Acute and subacute hepatic failure without coma; E43 Unspecified severe protein-calorie malnutrition; K56.7 Ileus, unspecified; E87.1 Hypo-osmolality and hyponatremia; E87.2 Acidosis; N17.9 Acute kidney failure, unspecified; N18.9 Chronic kidney disease, unspecified; K21.9 Gastro-esophageal reflux disease without esophagitis; K31.9 Disease of stomach and duodenum, unspecified; N28.9 Disorder of kidney and ureter, unspecified; N28.1 Cyst of kidney, acquired; R31.29 Other microscopic hematuria; E11.65 Type 2 diabetes mellitus with hyperglycemia; Z79.4 Long term (current) use of insulin; R63.0 Anorexia; Z68.26 Body mass index [BMI] 26.0-26.9, adult; B96.1 Klebsiella pneumoniae [K. pneumoniae] as the cause of diseases classified elsewhere; E55.9 Vitamin D deficiency, unspecified; I16.0 Hypertensive urgency; E11.22 Type 2 diabetes mellitus with diabetic chronic kidney disease; I12.9 Hypertensive chronic kidney disease with stage 1 through stage 4 chronic kidney disease, or unspecified chronic kidney disease
CPT/HCPCS: 36415; 71045; 74018; 74176; 74178; 74246; 76700; 78227; 80048; 80053; 81001; 82044; 82150; 82570; 82948; 83690; 83735; 84100; 84156; 84295; 84300; 85025; 85610; 85730; 86160; 86162; 87086; 87186; 96360; 96367; 96372; 96376; 97139; 99284; A9537; J0696; J1450; J1644; J2270; J2405; J2765; J7030; Q9967

== ENCOUNTER 2023-09-30 22:26 | Emergency (ER) | payer MEDICARE ==
[~2023-09-30] VITALS: Ht 157.5 cm; Wt 63.5 kg
[~2023-09-30 22:26] MED LIST: ACTOS30 MG PO; ALENDRONATE SOD70 MG PO; BENICAR20 MG PO; CEFUROXIME250 MG PO; CELEBREX200 MG PO; CRESTOR10 MG PO; GABAPENTIN300 MG PO; MAGNESIUM OXID400 MG PO; ONDANSETRON HCL4 MG PO; PANTOPRAZOLE SO40 MG PO; REGLAN10 MG PO; VITAMIN D400 UNIT PO; synjardy PO
[2023-09-30 22:35] VITALS: PULSE 101; RESP 18; TEMP 98.7
[2023-09-30] MEDS ORDERED: PAXLOVID 150-11 EAC1 PO (23:51)
[2023-09-30 23:57] VITALS: BP 153/72; PULSE 99; RESP 20; TEMP 98.4; O2SAT 97
== END 2023-10-01 00:07 | disposition home or self-care (01) ==
LOC: ER 22:35
DX: R05.9 Cough, unspecified (principal); U07.1 COVID-19; I10 Essential (primary) hypertension; E11.9 Type 2 diabetes mellitus without complications; E78.5 Hyperlipidemia, unspecified; K21.9 Gastro-esophageal reflux disease without esophagitis; E55.9 Vitamin D deficiency, unspecified; R94.31 Abnormal electrocardiogram [ECG] [EKG]
CPT/HCPCS: 71046; 83518; 87070; 87400; 93005; 99283; U0002